=== PATIENT | male | born 1960 | race Caucasian/White ===

== ENCOUNTER 2023-09-05 23:58 | Inpatient (IN) | payer OTHER, SELFPAY ==
[2023-09-05 22:35] VITALS: BMI 30.2
--- NOTE | 2023-09-05 22:39 | ED.GENMED ---
History of Present Illness
General
Chief Complaint: Breathing Problem
Time Seen by Provider: 09/05/23 22:35
Travel History
Have you had any contact with someone who has COVID-19?: No
Do you have any symptoms of coronavirus? Fever > 100 degrees, chills, cough, shortness of breath, sore throat, loss of taste or smell, muscle aches, or headache?: No
History of Present Illness
History of Present Illness:
63-year-old male with history of CHF, coronary artery disease, A-fib on Eliquis, presents to the emergency department for evaluation of shortness of breath. States it feels similar to a recent CHF exacerbation, at that time he was admitted to [facility] in [place]. He is currently on furosemide and spironolactone and states has been compliant with his medications. Denies any leg swelling
Per patient, last known echocardiogram was approximately 1 year ago showing an EF of 17%
Review of Systems
Review of Systems
Allergies reviewed?: Yes
All Other Systems: ROS reviewed and negative except as documented in HPI and ROS
Phy Exam
Physical Exam
Physical Exam:
GEN: Well appearing, NAD, WDWN
Eyes: PERRLA, EOMs intact, no scleral icterus
HENT: NCAT, oral mucosa moist, ++ JVD, no cervical adenopathy.
Lungs: Tachypneic, increased respiratory effort, scant bibasilar wheezes otherwise clear lungs
Cardiac: Tachycardic regular
Neuro: AO x 3
MSK: No gross deformity or ecchymosis. No edema. No digital clubbing
Skin: No rashes, petechiae. Normal color, no pallor or jaundice.
Psych: Calm, cooperative, proper hygiene
Scores
Heart Failure Risk
Heart Failure Risk Score: Yes
History of Stroke or TIA: No
History of intubation for respiratory distress: No
Heart rate on ED arrival >/= 110: Yes
SaO2 <90% on arrival on room air: No
HR >/=110 during 3min walk test (or too ill to perform test): Yes
ECG has acute ischemic changes: Yes
Urea >/=12mmol/L (BUN 33.6mg/dL): No
Serum CO2>/=35mmol/L: No
Troponin I or T elevated to MO Level (0.4mg/dL): No
NT-proBNP >/=5,000ng/L (5,000pg/ml): Yes
HF Risk Score: 5
Admission Status: VERY HIGH RISK 39.8% Consider admission to hospital
Course
Orders/Labs/Results
Orders:
Orders
09/05/23 22:17
Electrocardiogram (*1) Urgent
Reason for Study: Shortness of Breath
EKG- Treatment ONCE
09/05/23 22:32
BNP [NT-proBNP] Urgent
CMP [Comprehensive Metabolic Panel] Urgent
Complete Blood Count/With Diff Urgent
09/05/23 22:38
Troponin I Urgent
Diltiazem HCl [Cardizem] 20 mg IV NOW STA
09/05/23 22:39
CR Chest - 2 Views Urgent
Comment:
Reason For Exam: SOB
09/05/23 22:43
Diltiazem HCl [Cardizem] 25 mg .ROUTE .STK-MED ONE
09/05/23 22:45
Diltiazem 125 mg/125 ml Nss [Cardizem] 125 mg in 125 ml IV PER PROTOCOL
Initial dose in mg/hr, then titrate:: 5
Titrate to keep:: Heart rate 80-100 bpm
Titrate by mg/hr:: 5 mg/hr
Frequency of titrations (minutes):: 15
Maximum dose in mg/hr:: 15
09/05/23 23:18
Diltiazem HCl [Cardizem] 20 mg IV NOW STA
Furosemide [Lasix] 40 mg IV NOW STA
Abnormal Lab Results
09/05/23
22:32
RBC 4.51 L 10^6/uL
(4.70-6.10)
MCHC 32.8 L g/dL
(33.0-37.0)
RDW 14.6 H %
(11.5-14.5)
Absolute Monos (auto) 0.7 H 10^3/uL
(0.1-0.6)
BUN 25 H mg/dl
(9-20)
Glucose 147 H mg/dl
(70-99)
Total Bilirubin 3.2 H mg/dl
(0.2-1.3)
AST 88 H U/L
(17-59)
ALT 95 H U/L
(0-50)
09/05/23 22:32
09/05/23 22:32
Vital Signs
Initial and Last Documented VS:
Initial Vital Signs
Temp Pulse Resp Pulse Ox
98.1 F 74 32 98
09/05/23 22:13 09/05/23 22:13 09/05/23 22:13 09/05/23 22:13
Last Documented Vital Signs
Temp Pulse Resp BP Pulse Ox
98.1 F 151 33 115/103 92
09/05/23 22:13 09/05/23 23:23 09/05/23 22:45 09/05/23 23:23 09/05/23 22:45
MDM/Problems Addressed
MDM/Problems Addressed:
63-year-old male with history of severe HFrEF presents in acute decompensated heart failure. Department due to rapid atrial fibrillation. He was promptly started on diltiazem drip for rate control and IV diuresis was initiated. Chest x-ray
independently interpreted by me shows cardiomegaly without obvious vascular congestion or edema. Do not suspect infectious etiology, he is anticoagulated thus do not suspect pulmonary embolism. Will be admitted to the hospitalist service for
further management
Comment
Comment:
EKG independently interpreted by me shows a rapid atrial flutter with a rate of [address] depressions
*Critical Care Note
Total Time (30-74mins, 75-104mins- exclusive of procedures): 40 minutes
comment:
Critical care time: 40 minutes
Critical care time was exclusive of: Separately billable procedures, treating other patients, and teaching time
Critical care was necessary to treat or prevent imminent or life-threatening deterioration of the following conditions: Rapid atrial fibrillation, acute CHF
Critical care time spent personally by me on the following activities:
[x] Review of old charts
[x] Obtaining history from patient or surrogate
[x] Ordering and review of the laboratory studies
[x] Ordering and review of radiographic studies
[x] Ordering and performing treatments and interventions
[x] Patient patient's response to treatment
[x] Development of treatment plan with patient or surrogate
ED Attending Note
-
Portions of this chart may have been created with voice recognition software.� Occasional wrong word or��sound alike� substitutions may have occurred due to the inherent limitations of voice recognition software.
Discharge Plan
Departure
Patient Disposition: Admit
Date of Disposition: 09/05/23
Time of Disposition: 23:19
Presentation/result/management discussed w/ accepting MD/DO: Hospitalist
Discharge Problem:
Atrial fibrillation with RVR, Acute on chronic HFrEF (heart failure with reduced ejection fraction)
Interventions
Interventions:
*Risk Screen - Suicide Last Done: 09/05/23 22:13
*General Assessment Last Done: 09/05/23 22:36
*Neglect/Abuse Screening Last Done: 09/05/23 22:13
ED- Fall Risk Assessment Last Done: 09/05/23 22:38
*ED COVID-19 Vaccine History Last Done: 09/05/23 22:36
ED- Cardiac Assessment Last Done: 09/05/23 22:38
ED- Pulmonary Assessment Last Done: 09/05/23 22:38
Discharge Date and Time
Print Language: LAO
[2023-09-05 22:40] VITALS: BP 110/89
[2023-09-05 22:40] LABS: % Eosinophils 2.8 % (0-6); % Immature Granulocytes 0.2 % (0-0.5); % Lymphocytes 28.2 % (20.5-51.1); % Neutrophils 60.8 % (42.2-75.2); Absolute Basophils 0.1 10^3/uL (0-0.2); Absolute Eosinophils 0.3 10^3/uL (0-0.7); Absolute Lymphocytes 2.9 10^3/uL (1.2-3.4); Absolute Monocytes 0.7 10^3/uL (0.1-0.6); Absolute Neutrophils 6.2 10^3/uL (1.4-6.5); Hematocrit 42.1 % (39.0-52.0); Hemoglobin 13.8 g/dL (13.0-18.0); Mean Corp Hgb Conc. 32.8 g/dL (33.0-37.0); Mean Corpuscular Hgb 30.6 pg (27.0-31.0); Mean Corpuscular Volume 93.3 fL (80.0-94.0); Mean Platelet Volume 10.4 fL (7.4-10.4); Nucleated Red Blood Cells % 0 % (-); Platelet Count 279 10^3/uL (130-400); Red Blood Cell Count 4.51 10^6/uL (4.70-6.10); Red Cell Dist. Width 14.6 % (11.5-14.5); White Blood Cell Count 10.2 10^3/uL (4.8-10.8)
[2023-09-05] MEDS: CARDIZEM 20 MG IV ×2 (22:45→23:21)
[2023-09-05] MEDS: CARDIZEM 125 IV ×2 (22:46→23:19)
[2023-09-05 22:53] LABS: ALT (SGPT) 95 U/L (0-50); AST (SGOT) 88 U/L (17-59); Alkaline Phosphatase 80 U/L (38-126); Blood Urea Nitrogen 25 mg/dl (9-20); Calcium 9.3 mg/dl (8.4-10.2); Carbon Dioxide 23 mmol/L (22-30); Chloride 101 mmol/L (98-107); Estimated Creatinine Clearance 67 ml/min; Glucose 147 mg/dl (70-99); Potassium 4.2 mmol/L (3.5-5.1); Sodium 136 mmol/L (135-145); Total Bilirubin 3.2 mg/dl (0.2-1.3); Total Protein 7.1 g/dl (6.3-8.2); eGFR > 60.00
[2023-09-05 23:00] VITALS: BP 97/69
[2023-09-05 23:00] LABS: NT-proBNP 12900 pg/ml
[2023-09-05 23:15] VITALS: BP 115/103
[2023-09-05] MEDS: LASIX 40 MG IV (23:23)
--- NOTE | 2023-09-05 23:40 | HPS.HSE ---
Addendum entered and electronically signed by Jean Stockton MD 09/06/23 00:49:
Trop 0.09. ECG is non-ischemic. Several days of SOB and uncontrolled afib. Suspect tachycardia induced demand ischemia in setting of low EF and uncontrolled afib.
- continue ac with apixaban
- trend trop
- cards consult
- rate control and volume decompression as described in rest of plan
Original Note:
Family Physician
-
Family Physician: * NONE
Chief Complaint
-
Shortness of breath
History of Present Illness
This is a 63-year-old with past medical history of CAD, OK in 2019 with subsequent ischemic remained with the EF of 20% status post defibrillator pacemaker, atrial fibrillation, recurrent admissions for CHF exacerbations in the past who presents to
the emergency department with 3 days of worsening dyspnea on exertion, shortness of breath and orthopnea.
Patient reported that he was only discharged from the hospital about a month ago. Was discharged on his current regimen of 40 mg of Lasix daily which he has been compliant with. He does not know if he has had any increase in his weight. However
over the last 4 to 5 days he has had increasing fatigue and dyspnea on exertion. In the last 2 to 3 days he has had cough paroxysms of severe orthopnea. Cough is non-productive. No fevers, chills. No sick contacts. No new meds or exposures.
Patient reports that he does not have lower extremity edema but he has never had increasing lower extremity edema with CHF exacerbations. He denies increase in abdominal girth. He denies any exertional chest pain. He does report chest discomfort
with coughing. Denies feeling dizzy or lightheaded. He is not aware of palpitations. He reports that his never had uncontrolled atrial fibrillation in the past.
On arrival in the emergency department the patient was afebrile, blood pressure was 110/89, heart rate was 149 oxygen saturation was 90% on room air. ECG shows atrial flutter with 2 1 conduction with a rate of 150. Chest x-ray shows cardiomegaly.
Increased vascular markings but no clear evidence of pulmonary edema. Was negative. BNP was markedly elevated. BUN/creatinine were 25 and 1.3 electrolytes were normal with a potassium of 4.2. CBC was unremarkable. He does have increased LFTs.
Medical History
Past Medical History
Past Medical History: Reports Arrhythmia, CHF, HTN and OK
Past Surgical History: Reports None
Social History
Tobacco: Non-smoker
Alcohol: Former
Drug: None
Personal:
Living: With Family
Employment: Retired
Family History
Family History: Not pertinent
Allergies / Home Medications
Allergies reflects when Allergies were last updated in [facility].
Home Medications with original date entered in [employer]
Allergy/Medication List:
No known drug allergies
Apixaban 5mg po bid
Carvedilol 12.5 mg po bid
Furosemide 40 mg o daily
Lisinopril 5mg po daily
spironolactone 25 mg po daily
Potassium chloride 10 meq po daily
Review of Systems
-
History Source: Patient and Family
Constitutional: Reports No Symptoms
EENT: Reports No Symptoms
Respiratory: Reports Cough and Trouble Breathing
Cardiac: Reports Diaphoresis
Abdomen/GI: Reports No Symptoms
: Reports No Symptoms
Musculoskeletal: Reports No Symptoms
Skin: Reports No Symptoms
Neurological: Reports No Symptoms
Endocrine: Reports No Symptoms
Hematologic/Lymphatic: Reports No Symptoms
Psych: Reports Anxiety
Physical Exam
Vital Signs
Vital Signs
Temp Pulse Resp BP Pulse Ox
98.1 F 151 33 115/103 92
09/05/23 22:13 09/05/23 23:23 09/05/23 22:45 09/05/23 23:23 09/05/23 22:45
Physical Exam
General: Appears in Distress
HEENT: NormoCephalic, Anicteric, Moist mucous membranes, Atraumatic and PERRLA
Respiratory: Clear
Cardiac: S1/S2, Irregular Rhythm, Tachycardia and JVD
GI: Soft, Non Tender, Non Distended and Normal Bowel Sounds
Rectal: Deferred by Provider
Genito-urinary: Deferred by me
Musculoskeletal: No Clubbing, No Cyanosis and No Edema
Skin: Warm
Neuro: AO x 3
Hematologic/Lymphatic: No Lymphadenopathy
Psych: Calm
Laboratory Results
-
09/05/23 22:32
09/05/23 22:32
Laboratory Results
Total Bilirubin 3.2 mg/dl (0.2-1.3) H 09/05/23 22:32
AST 88 U/L (17-59) H 09/05/23 22:32
ALT 95 U/L (0-50) H 09/05/23 22:32
Alkaline Phosphatase 80 U/L (38-126) 09/05/23 22:32
Data Reviewed
-
Diagnostic Radiology: Image Personally Visualized and interpreted
Medical Tests (Nuc Med, Echo, EKG etc): Image Personally Visualized and interpreted
Lab Data: Labs Reviewed by me
Old Records: Reviewed
Impression/Plan
-
IMPRESSION:
63 Male h/o OK with subsequent cardiomyopathy, EF 20% s/p AICD-ppm, recurrent admissions for CHF exacerbations, afib on AC presenting to ED with uncontrolled afib/flutter, dyspnea, orthopnea and pnd. Patient with paroxysmal cough that is worse
laying down. Exam notable for JVD elevation but now peripheral edema or crackles. Patient reports never having peripheral edema despite CHF exacerbations. BNP is markedly elevated and he has transaminitis that is likely due to congestive
hepatopathy. No consolidation.
PLAN:
1. CHF Exacerbation - Acute on chronic CHF with depressed EF. Moderate volume overload.
- admit to IMU
- lasix 40mg iv bid for now
- monitor weights and i/os
- will hold lisinopril to allow for titrating rate control
- continue spironolactone.
- echo in am
- cardiology consult
2. Uncontrolled Afib - Afib flutter. Initially presented with flutter 1:2 conduction at 150. Now afib with rates in 110s after diltiazem gtt
- telemetry
- continue dilitazem gtt, titrate for rate < 110, may consider amiodarone or dig if remains uncontrolled
- continue beta blockade as tolerated (carvedilol 12.5 bid)
- continue apixaban
- cardiology consult
3. Anxiety - Caused by orthopnea
- keep HOB > 30 degrees
- tolerated xanax 0.25 prn in the past
4. Transaminitis - Suspect congestive hepatopathy
- diuresis
- trend lfts
- echo, consider RUQ u/s in am
DVT PPX - on apixaban
Full Code.
[2023-09-05 23:54] VITALS: BP 104/66
[2023-09-06] VITALS (70 sets, daily range): BP systolic 58–164; BP diastolic 28–139; BMI 29.3
[2023-09-06] MEDS: XANAX 0.25 MG PO (00:16)
[2023-09-06 00:26] LABS: Troponin I 0.095 ng/ml
--- NOTE | 2023-09-06 03:14 | PTCARENOTE ---
Rec'd pt. into room 2249 from ED AAOx3, A-flutter on the monitor, rate 80's-110's with activity. Cardizem infusing at 10 mg/hr. No complaints of pain. Pt. independent with ambulation, gait steady. Some VAIL assessed, crackles present in bilateral
bases, RA pulse ox 96%. Dry cough also present when pt. awake. Pt. oriented to room & plan of care, admission completed. Pt. very tired, currently sleeping.
[2023-09-06 05:37] LABS: Blood Urea Nitrogen 23 mg/dl (9-20); Calcium 8.8 mg/dl (8.4-10.2); Carbon Dioxide 21 mmol/L (22-30); Chloride 105 mmol/L (98-107); Estimated Creatinine Clearance 78 ml/min; Glucose 112 mg/dl (70-99); Magnesium 1.9 mg/dl (1.6-2.3); Potassium 3.7 mmol/L (3.5-5.1); Sodium 135 mmol/L (135-145); eGFR > 60.00
[2023-09-06 05:44] LABS: Troponin I 0.089 ng/ml
[2023-09-06 05:56] LABS: TSH Reflex To Free T4 2.15 uIU/ml (0.47-4.68)
[2023-09-06] MEDS: LASIX 40 MG IV (08:05)
[2023-09-06] MEDS: ALDACTONE 25 MG PO (08:05)
[2023-09-06] MEDS: ELIQUIS 5 MG PO ×2 (08:05→21:00)
[2023-09-06] MEDS: COREG 12.5 MG PO (08:05)
[2023-09-06] MEDS: FLUSH (NSS) 2 FLUSH IV (08:07)
--- NOTE | 2023-09-06 08:55 | CON.CAR ---
Addendum entered and electronically signed by Avi Levi MD 09/06/23 10:11:
63 yo male with PMH of WI in 2020 (patient does not think there was any intervention), ICM EF ~20%, s/p ICD, chronic HFrEF, paroxysmal A fib on eliquis is admitted with SOB. There is no chest pain. Exam with irregular rhythm, II/ systolic murmur
at apex, minimal edema, +JVD.
Acute on chronic HFrEF
-echo today
-continue IV lasix
-continue aldactone
-add farxiga
New atrial flutter
-cont eliquis: he does report missed doses
-stop diltiazem, and increase coreg to 25mg bid
-once euvolemic, we can schedule for AIDA/DCCV
Original Note:
Consultation
Consultation Request
Date/Time Consultation Requested: 09/06/23 02:00
Date/Time Consultation Performed: 09/06/23 08:55
Requesting Provider: Dr. Stockton
Performing Provider: LYN Lugo for Dr. Levi
Reason for Consultation: Abnormal troponin
Medical History
-
Chief Complaint: Shortness of breath
History of Present Illness:
Juan Daniel Raman is a 63-year-old male (known to Dr. Conrado Escalante at [facility]), with coronary artery disease, ischemic cardiomyopathy, and paroxysmal atrial fibrillation (on apixaban), who presented to the emergency department
last evening with a chief complaint of shortness of breath. He endorses shortness of breath that started approximately 2 days prior to arrival. He has associated orthopnea and PND. He reported palpitations. He was found to be in atrial flutter,
2:1 with a heart rate of nearly 150. He was started on a diltiazem drip. His past medical history includes an WI in 2020 with subsequent ischemic cardiomyopathy. He reports his lowest ejection fraction was approximately 17%. His EF did not
rebound and he had a Medtronic ICD placed. He has had issues with recurrent admissions for heart failure exacerbations. He reports this is a typical scenario for his heart failure exacerbation, severe shortness of breath. He reports he has
forgotten his medications at least 4 days in the past month. This includes both furosemide and apixaban. He is visiting from [place] and he reports he did not bring all of his medication with him.
Past Medical History
Past Medical History: Arrhythmias (Paroxysmal atrial fibrillation [on apixaban]), CAD, CHF, HTN and WI
Social History
Tobacco: Non-Smoker
Alcohol: None
Drug: None
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
Family History
Family History: Reviewed & Not Pertinent
Allergies / Home Medications
Allergy/AdvReac Type Severity Reaction Status Date / Time
No Known Allergies Allergy Verified 09/05/23 22:41
�Medication �Instructions �Recorded �Confirmed �Type
apixaban 5 mg tablet (Eliquis) 5 mg PO BID 09/06/23 09/06/23 History
carvedilol 12.5 mg tablet 12.5 mg PO BID 09/06/23 09/06/23 History
furosemide 40 mg tablet 40 mg PO DAILY 09/06/23 09/06/23 History
lisinopril 5 mg tablet 5 mg PO DAILY 09/06/23 09/06/23 History
potassium chloride 10 mEq 10 meq PO DAILY 09/06/23 09/06/23 History
tablet,extended release
spironolactone 25 mg tablet 25 mg PO DAILY 09/06/23 09/06/23 History
Review of Systems
-
History Source: Patient
All other systems: Negative unless noted
Respiratory: Trouble Breathing
Cardiac: No Symptoms
Abdomen/GI: No Symptoms
Physical Exam
Vital Signs
Temp Pulse Resp BP Pulse Ox
97.6 F 93 24 99/74 96
09/06/23 08:04 09/06/23 08:05 09/06/23 08:04 09/06/23 08:05 09/06/23 08:04
Lab Results
09/05/23 22:32
09/06/23 04:38
Troponin I 0.089 ng/ml H* 09/06/23 04:38
[id number] Pept 30914 pg/ml 09/05/23 22:32
Physical Exam
General: Well Developed, Well Nourished, No Apparent Distress and Comfortable
HEENT: Normocephalic, Anicteric and Moist Mucous Membranes
Respiratory: Clear and Non Labored Respirations
Cardiac: S1/S2 and Irregular Rhythm; Negative Peripheral Edema
Breast: Deferred by me
GI: Soft, Non Tender, Non Distended and Normal Bowel Sounds
Rectal: Deferred by Provider
Genito-urinary: No Costovertebral Tender
Musculoskeletal: No Clubbing, No Cyanosis and No Edema
Skin: Warm and Dry
Neuro: AO x 3
Hematologic/Lymphatic: No Lymphadenopathy
Psych: Calm
Impression / Plan
-
Shortness of breath, multifactorial, in the setting of rapid atrial flutter and acute on chronic HF
-Plan as below
Acute hypoxic respiratory insufficiency, in the setting of acute heart failure - wean O2 as tolerated
ICM, HFrEF, acute on chronic
-Reports last known EF ~20%, update TTE
-He reports missed doses of furosemide
-Diuresis with furosemide 40mg IV BID
-proBNP 12,900, baseline unknown
-GDMT as tolerated, it appears to be limited by his BP
-MANJU/ARB: Lisinopril 5mg, on hold with diuresis
-Valsartan�sacubitril: His BP will likely not support this
-SGLT2: Case Management to arellano, start Farxiga 10mg
-MRA: Spironolactone 25mg
-Beta radu: Carvedilol 12.5mg BID
-ICD: Implanted (Medtronic)
-Trend daily weight, I/Os, and BMP with diuresis
-Medication non-adherence makes this challenging
Atrial flutter, 2:1
Paroxysmal atrial fibrillation
-Rate controlled on diltiazem, which is less than ideal given his ICM
-Increase carvedilol to 25mg BID and stop diltiazem after TTE
-Oral anticoagulation: Apixaban 5mg BID, he endorses missed doses
-[id number]:score 3 (Heart failure, HTN, Vascular disease)
-Will likely restore rhythm this hospitalization, will need AIDA guided DCCV
Abnormal troponin, likely non ischemic myocardial injury in the setting of tachyarrhythmia
-Peak on arrival, 0.095
-Chest pain free
CAD, on apixaban, he is not on a statin, fasting lipid profile in am, will start statin based on LFTS
Medtronic ICD
Transaminitis, likely in the setting of congestion
Data Reviewed
-
EKG: Report Reviewed by me (Atrial flutter, 2:1, LAFB, LVH, rate 147; Atrial flutter, LVH, rate 84)
Radiology: Report Reviewed by me (CXR: Mild pulmonary vascular congestion. Mild cardiomegaly.)
Labs: Labs Reviewed by me
[2023-09-06] MEDS: XANAX 0.5 MG PO (10:28)
--- NOTE | 2023-09-06 10:29 | PTCARENOTE ---
patient rolling around in bed, breathing heavily, cussing stating that he is having a 'panic attack', Ativan po given as ordered.
--- NOTE | 2023-09-06 10:39 | W.PN.HOSP.TC ---
Today's Communication/Plan
-
Consider IV Lasix.
Echocardiogram today
Consider switching IV Cardizem with low EF
Await cardiology input
Assessment / Plan
Assessment / Plan
IMPRESSION:
63 Male h/o RI with subsequent cardiomyopathy, EF 20% s/p AICD-ppm, recurrent admissions for CHF exacerbations, afib on AC presenting to ED with uncontrolled afib/flutter, dyspnea, orthopnea and pnd. Patient with paroxysmal cough that is worse
laying down. Exam notable for JVD elevation but now peripheral edema or crackles. Patient reports never having peripheral edema despite CHF exacerbations. BNP is markedly elevated and he has transaminitis that is likely due to congestive
hepatopathy. No consolidation.
PLAN:
1. Acute CHF Exacerbation - Acute on chronic CHF with depressed EF.
- cw IV lasix 40mg iv bid for now
- monitor weights and i/os
- will hold lisinopril to allow for titrating rate control
- continue spironolactone.
- echo
- cardiology consult
2. Uncontrolled Afib - Afib flutter. Initially presented with flutter 1:2 conduction at 150. Now afib with rates in 110s after diltiazem gtt
- telemetry
- on dilitazem gtt, titrate for rate - with low EF i would favor discontinuing it for another agent/s
- continue beta blockade as tolerated (carvedilol 12.5 bid)
- continue apixaban
- cardiology consult
3. Anxiety
- start on xanax prn
4. Transaminitis - Suspect congestive hepatopathy
- diuresis
- trend lfts
- echo
DVT PPX - on apixaban
Full Code.
Anticipated Discharge: > 48 hours
Subjective/Interval History
-
Date of Service: September 06, 2023
This morning complains of feeling panicky. He said for the last 3 days he has been feeling panicky. He said that he got relief with Xanax last night.
He is lying back in his bed feeling panicky but no increased respiratory rate, oxygenating well on 2 L, heart rate in 60s, blood pressure stable. No sweating noted. No tremors noted.
Denies any chest pain.
Objective Data
-
Labs:
Laboratory Results
09/05/23 09/06/23
22:32 04:38
WBC 10.2
Hgb 13.8
Hct 42.1
Plt Count 279
Sodium 136 135
Potassium 4.2 3.7
Chloride 101 105
Carbon Dioxide 23 21 L
BUN 25 H 23 H
Creatinine 1.3 1.0
Glucose 147 H 112 H
Calcium 9.3 8.8
Total Bilirubin 3.2 H
AST 88 H
ALT 95 H
Alkaline Phosphatase 80
Vital Signs:
Vital Signs
Temp Pulse Resp BP Pulse Ox
97.6 F 99 24 99/74 96
09/06/23 08:04 09/06/23 09:00 09/06/23 08:04 09/06/23 08:05 09/06/23 08:04
I&O
09/05/23 09/06/23 09/07/23
06:59 06:59 06:59
Intake Total 240 / 240
Output Total 1025 / 1025
Balance -785 / -785
Review of Systems
-
Constitutional: Denies Fever
EENT: Denies Sore Throat
Respiratory: Reports Trouble Breathing; Denies Cough
Cardiac: Denies Chest Pain
Abdomen/GI: Denies Nausea or Vomiting
Neuro: Denies Dizzy
Psych: Reports Anxious
Physical Exam
-
General: No Apparent Distress
HEENT: Moist Mucous Membranes
Respiratory: Crackles (few left basal crackles heard ) and Non Labored Respirations; Negative Wheezes or Accessory Resp Muscle Use
Cardiac: S1/S2 and Irregular Rhythm; Negative Tachycardic
GI: Soft, Nontender, Nondistended and Normal Bowel Sounds
Neuro: AO x 3 and No Motor Deficits; Negative Tremors
Psych: Anxious; Negative Confused or Agitated
Data Reviewed
-
Labs: Labs Reviewed by me
[2023-09-06] MEDS: CARDIZEM 125 IV (11:25)
--- NOTE | 2023-09-06 11:53 | W.PN.UPDATE ---
Addendum entered and electronically signed by Schuyler Hernandez MD 09/06/23 12:44:
I saw and examined the patient.
The HATCHERY MANAGER's note was reviewed and I agree with the note.
Patient assessed . Sob and hypotension. Patient placed on facemask give IV levophed and IV cardziem stopped. Patient still with SOB but feeling a little better and pulse ox 100% on facemask.Patient trasnferred to ICU. Patient with known
cardiomyopathy. Echo with EF10-15% also with RV hypokinesis. Patient is critically ill. Challenging management issue in patient with severely reduced LVF. Hypotension may be multifactorial related to combination of cardiomyopathy and meds. Also
consider other potential factors ( PE) and infection. BP as well as afib
- continue anticoagulation initiated by primary team. Does not appear he would be able to get CT at this time
- continue levo . will wean as tolerated and will asses ue of additonal inotrope support
- keep off cardizme
Original Note:
Update Note
Progress Note Update
Called by nurse to see patient.
He is short of breath (worse), hypoxic, and hypotensive. Levophed started.
HR 50s off diltiazem gtt.
He appears very anxious on exam. 'I can't take a deep breath. I can't breathe.'
Shortness of breath not worse with lying flat for EKG.
ABG ordered.
Limited TTE without effusion & LVEF ~15-20% according to my views.
Consider Ddx of PE despite low Wells Criteria.
Attending notified via TT. Dr Hernandez updated.
[2023-09-06 11:59] LABS: Glucose - Point of Care 211 mg/dl (70-99)
[2023-09-06 12:16] LABS: % Basophils 0.6 % (0-2); % Eosinophils 2.4 % (0-6); % Immature Granulocytes 0.5 % (0-0.5); % Lymphocytes 18.2 % (20.5-51.1); % Neutrophils 72.3 % (42.2-75.2); Absolute Basophils 0.1 10^3/uL (0-0.2); Absolute Eosinophils 0.2 10^3/uL (0-0.7); Absolute Immature Granulocytes 0.1 10^3/uL (0-0.05); Absolute Lymphocytes 1.8 10^3/uL (1.2-3.4); Absolute Monocytes 0.6 10^3/uL (0.1-0.6); Hemoglobin 13.3 g/dL (13.0-18.0); Mean Corp Hgb Conc. 34.1 g/dL (33.0-37.0); Mean Corpuscular Hgb 30.7 pg (27.0-31.0); Mean Corpuscular Volume 90.1 fL (80.0-94.0); Mean Platelet Volume 10.6 fL (7.4-10.4); Nucleated Red Blood Cells % 0 % (-); Platelet Count 254 10^3/uL (130-400); Red Blood Cell Count 4.33 10^6/uL (4.70-6.10); Red Cell Dist. Width 14.6 % (11.5-14.5); White Blood Cell Count 9.6 10^3/uL (4.8-10.8)
[2023-09-06 12:20] LABS: B.E. -4.5 mmol/L; PCO2 30 mmHg (35-48); PO2 162 mmHg (83-108); pH 7.41 (7.35-7.45)
--- NOTE | 2023-09-06 12:21 | W.PN.UPDATE ---
Update Note
Progress Note Update
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
Rapid response called at macrocephalic bradycardia hypotension and patient complaining of shortness of breath.
Patient was en route to ICU when i arrived.
Patient complains of shortness of breath.
Bluish discoloration of face noted.
Diaphoresis noted.
Currently on IV Levophed. Cardizem drip discontinued.
Currently settling ICU. With the elevation of the head: The face is much better. He is feeling more comfortable.
Currently heart rate in 60s. MAP 76 saturating 97% on 10 L of oxygen. He denies any chest pain.
No acute respiratory distress evident.
Will obtain a chest x-ray.
Obtain repeat labs including troponin.
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
No history of prior PE. He was taking Eliquis for A-fib and he got his dose today.
My concern is hypotension and bradycardia brought on by Cardizem drip with already pre-existing decreased cardiac output.
Consider Inotropes
Wean O2 ; if not able to and cxr is clear consider PE eval.
Consult pulmonary
DW PACKING ATTENDANT team and cardiology
Total time of critical care 35 min
[2023-09-06] MEDS: DUONEB 3 ML INH (12:23)
[2023-09-06 12:28] LABS: Lactic Acid 3.8 mmol/L (0.7-2.0)
[2023-09-06 12:30] LABS: ALT (SGPT) 79 U/L (0-50); AST (SGOT) 62 U/L (17-59); Albumin 3.5 g/dl (3.5-5.0); Alkaline Phosphatase 74 U/L (38-126); Blood Urea Nitrogen 24 mg/dl (9-20); Calcium 9.1 mg/dl (8.4-10.2); Carbon Dioxide 18 mmol/L (22-30); Chloride 102 mmol/L (98-107); Estimated Creatinine Clearance 56 ml/min; Glucose 195 mg/dl (70-99); Potassium 4.4 mmol/L (3.5-5.1); Sodium 133 mmol/L (135-145); Total Protein 6.3 g/dl (6.3-8.2); eGFR 56.48
--- NOTE | 2023-09-06 12:30 | PTCARENOTE ---
This RN in to see pt bec HR noted to be in 60's on telemetry monitoring. Pt on a Cardizem drip at 10mLs/hr. Cardizem drip stopped & BP checked. Pt's BP 80/66, recheck 85/73. Pt reported feeling like he was 'having a panic attack' earlier in the
shift. Cardiology & Dr Serrano in to see pt earlier & IV lasix given as ordered by MD & PO Xanax administered as ordered for anxiety. Pt stated to this RN, 'it's happening again' & described his SOB as 'a panic attack'. Pt w/no c/o CP, but very
orthopneic & tachypneic at rest. O2 via NC increased to 6L. Pt's O2 sat 99-100% on 6L. Cardiology PA notified & in to see pt. Initially NSS IVF started on pt, but stopped when PA arrived. Pt's BP even lower at 58/28, immediate recheck 86/71. Rapid
response called. See Rapid response sheet for further information. Pt transferred to ICU.
[2023-09-06 12:37] LABS: INR 1.66; PT 19.4 Sec (11.4-14.6)
[2023-09-06 12:38] LABS: APTT 35.7 Sec (23.4-35.0)
[2023-09-06 12:40] LABS: D-Dimer 1.45 ug/mlFEU (0.00-0.50)
[2023-09-06 12:42] LABS: Troponin I 0.078 ng/ml
--- NOTE | 2023-09-06 14:13 | PTCARENOTE ---
Rapid response called for patient in IVU level of care. Pt admitted for CHF exacerbation and uncontrolled A Fib; had been on Cardizem gtt. Cardizem gtt now off. Pt hypotensive with lowest documented BP 58/28. Norepinephrine gtt titrated to 10mcg/min
to maintain goal of SBP > 90. New goal ordered for MAP > 65; pt remains @ 10 mcg/hr. A Fib/A Flutter on monitoring tech. HR 50s - 60s. Trace LE edema. Pt stating shortness of breath. RR to 40s. SaO2 98% on 6L NC. Crackles auscultated at bases. NC
increased to 10L for comfort. Labs drawn and sent. Pt transferred to ICU.
--- NOTE | 2023-09-06 14:52 | CON.INTV ---
Consultation
Consultation Request
Date/Time Consultation Requested: 09-06-23
Date/Time Consultation Performed: 09-06-23
Requesting Provider: Hospitalist flo
Performing Provider: Dr Mckeon
Reason for Consultation: dyspnea
Medical History
-
Chief Complaint: dyspnea
History of Present Illness:
Mr Juan Daniel Raman is a 63/M adm 09-04 with 3-5 d h/o worsening dyspnea, orthopnea and nonproductive cough.
Known h/o CHF with EF 20% and recurrent adm for AECHF. At ER presented uncontrolled AFib, started on diltiazem gtt, IV furosemide.
NURSE OB called 09-05 due to hypotension, bradycardia and dyspnea, diltiazem gtt discontinued, started on NE and transferred to ICU
Seen at ICU, obtunded, borderline bradycardia, continue on NE gtt
Past Medical History
Past Medical History: CAD, CHF and HTN
Social History
Tobacco: Non-smoker
Alcohol: Former
Drug: None
Personal:
Living: With Family
Family History
Family History: Reviewed & Not Pertinent
Allergies / Home Medications
Allergies
Allergy/AdvReac Type Severity Reaction Status Date / Time
No Known Allergies Allergy Verified 09/05/23 22:41
Home Medications
�Medication �Instructions �Recorded �Confirmed �Last Taken �Type
apixaban 5 mg tablet (Eliquis) 5 mg PO BID Blood Clot 09/06/23 09/06/23 Unknown History
Prevention/Tx
carvedilol 12.5 mg tablet 12.5 mg PO BID Heart Failure 09/06/23 09/06/23 Unknown History
furosemide 40 mg tablet 40 mg PO DAILY Fluid 09/06/23 09/06/23 Unknown History
Retention/Swelling
lisinopril 5 mg tablet 5 mg PO DAILY Blood Pressure 09/06/23 09/06/23 Unknown History
potassium chloride 10 mEq 10 meq PO DAILY Electrolyte 09/06/23 09/06/23 Unknown History
tablet,extended release Repletion
spironolactone 25 mg tablet 25 mg PO DAILY Heart 09/06/23 09/06/23 Unknown History
Disease/Condition
Review of Systems
-
Unable to Obtain full review of systems at this time due to: Acuity
Vitals / Labs / Diagnostic Testing
Vital Signs
Temp Pulse Resp BP Pulse Ox
97.6 F 72 27 106/87 93
09/06/23 08:04 09/06/23 14:30 09/06/23 14:30 09/06/23 14:30 09/06/23 14:30
Lab Data
09/06/23 Unknown
09/06/23 Unknown
Laboratory Results
09/06/23 09/06/23
12:03 Unknown
PT 19.4 H
INR 1.66
APTT 35.7 H
pH 7.41
pCO2 30 L
pO2 162 H
HCO3 19.0 L
O2 Delivery Level
Diagnostic Testing:
Physical Exam
-
HEENT: Normocephalic and Moist Mucous Membranes
Cardiovascular: Regular Rhythm, Peripheral Edema (n) and JVD
Respiratory: Wheeze (n), Rales and Accessory Resp Muscle Use (mild)
GI: Soft, Non Distended and Non Tender
Neurology: Other (lethargic)
Skin: Warm
General: Respiratory Distress (mild)
Assessment
-
Assessment:
Mr Juan Daniel Raman is a 63/M adm 09-04 with 3-5 d h/o worsening dyspnea, orthopnea and nonproductive cough. Known h/o CHF with EF 20% and recurrent adm for AECHF. At ER presented uncontrolled AFib, started on diltiazem gtt, IV furosemide. NURSE OB called
09-05 due to hypotension, bradycardia and dyspnea, diltiazem gtt discontinued, started on NE and transferred to ICU
Impression:
Severe bradycardia
Suspected related to CCB gtt and oral BB
Hypotension, due to severe bradycardia
AECHF
Elevated troponins
Elevated BNP
Elevated D-dimer
Mild hyponatremia
Compensated resp alkalosis
Elevated Cr
Mild transaminitis
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
CHF: ICM
S/p AICD
HTN
PAFib on apixaban
Plan:
Transferred to ICU after NURSE OB evaluation at IMU
Severe bradycardia and hypotension
IV diltiazem gtt discontinue
Started NE, keep MAP=>60-65
Keep asp precs
Follow MS
O2 protocol, keep POx >=92%
Follow inpatient TTE results, reportedly EF at 10-15% as c/w baseline 20% (no information on RV size and function at the moment)
Noted elevated D-dimer, certainly at risk for VTE, though already on apixaban and clinical presentation compatible with AECHF compounded by severe bradycardia
Pending chest CTA
Added BEE doppler
Cards following
Certainly challenging management of A/C CHF given ongoing hypotension and bradycardia
Continue IV diuretic, follow response
Prognosis guarded
Critical care time: 35 min
D/w Deb Hernandez and Zach
[2023-09-06] MEDS: LASIX IV (17:05)
[2023-09-06] MEDS: PRIMACOR 20 MG 100 IV (17:30)
[2023-09-06] MEDS: LEVOPHED 250 IV (18:23)
--- NOTE | 2023-09-06 18:32 | PTCARENOTE ---
Pt reassessed. Intermittently drowsy but rouses with verbal stimuli and conversive. Continues to deny chest pain. Remains in A Fib/A Flutter on property assessment monitor. HR had increased to 60s - 70s. Milrinone gtt infusing @ 0.125 mcg/kg/min per order.
Beginning to taper Levophed gtt; currently infusing @ 6 mcg/min. SaO2 94% on 2L NC.
--- NOTE | 2023-09-06 20:33 | PTCARENOTE ---
Pt reassessed. HR now observed in 80s. Denying chest pain. Remains in Atrial Fibrillation on gambling monitor. Ordered to hold 20:00 dose of Coreg 12.5mg PO. Weaning Levophed gtt; infusing @ 4 mcg/min. SaO2 96% on 2L. Pt ate 100% of dinner.
[2023-09-06] MEDS: COREG PO (21:05)
[2023-09-07] VITALS (44 sets, daily range): BP systolic 80–143; BP diastolic 62–120; BMI 29.7
--- NOTE | 2023-09-07 00:48 | PTCARENOTE ---
Pts physical assessment preformed at this time,pt is oriented,denies pain,repositions with ease.VS stable,afebrile.AFIB surveillance monitor,pt maintained on Levophed and Milrinone,MAP levels kept >65 as per order.No resp distress,O2 sats 97% on
2lnc.Sleeping after assessment.
[2023-09-07 05:38] LABS: ALT (SGPT) 114 U/L (0-50); AST (SGOT) 77 U/L (17-59); Albumin 3.4 g/dl (3.5-5.0); Alkaline Phosphatase 80 U/L (38-126); Blood Urea Nitrogen 29 mg/dl (9-20); Calcium 9.5 mg/dl (8.4-10.2); Carbon Dioxide 22 mmol/L (22-30); Chloride 100 mmol/L (98-107); Direct Bilirubin 0.4 mg/dl (0.0-0.4); Estimated Creatinine Clearance 65 ml/min; Glucose 120 mg/dl (70-99); HDL Cholesterol 38 mg/dl; LDL Cholesterol, Calculated 81 mg/dl; Potassium 3.9 mmol/L (3.5-5.1); Sodium 132 mmol/L (135-145); Total Cholesterol 139 mg/dl (50-199); Total Protein 6.4 g/dl (6.3-8.2); Triglyceride 103 mg/dl (10-149); Very Low Density Lipoprotein 20 mg/dl (0-30); eGFR > 60.00
--- NOTE | 2023-09-07 07:52 | W.PN.INTV ---
Today's Communication / Plan
Recommendations
O2 protocol
Milrinone
Diuretic
GDMT
Assessment
-
Assessment:
Mr Juan Daniel Raman is a 63/M adm 09-04 with 3-5 d h/o worsening dyspnea, orthopnea and nonproductive cough. Known h/o CHF with EF 20% and recurrent adm for AECHF. At ER presented uncontrolled AFib, started on diltiazem gtt, IV furosemide. HYDRAULIC TESTER called
09-05 due to hypotension, bradycardia and dyspnea, diltiazem gtt discontinued, started on NE and transferred to ICU
Impression:
Severe bradycardia
Suspected related to CCB gtt and oral BB
Hypotension, due to severe bradycardia
AECHF
Elevated troponins
Elevated BNP
Elevated D-dimer
Mild hyponatremia
Compensated resp alkalosis
Elevated Cr
Mild transaminitis
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
CHF: ICM
S/p AICD
HTN
PAFib on apixaban
Plan:
Transferred to ICU after HYDRAULIC TESTER evaluation at IMU 09-05
Severe bradycardia and hypotension
IV diltiazem gtt discontinued 09-05
Started NE, milrinone
NE off since 3 am today
Continue milrinone
Keep asp precs
MS has improved
O2 protocol, keep POx >=92%
Inpatient limited TTE: LVEF 15-20%, RV hypokinetic, cannot exclude
Noted elevated D-dimer, certainly at risk for VTE, though already on apixaban and clinical presentation compatible with AECHF compounded by severe bradycardia
Chest CTA and BEE doppler negative
Cards following closely
Continue IV diuretic, follow response
Continue BB, dapagliflozin, spironolactone
Can transfer to IVU, will sign off then
Critical care time: 35 min
Subjective Dataa
Subjective Data
Date of Service:
Date of Service: September 07, 2023
Chief Complaint: Manager Union Follow Up
Subjective:
No major events reported overnight
This morning, awake, reports significant clinical improvement
Review of Systems
General: Fever (n), Sweats (n), Chills (n) and Satisfactory Appetite
HEENT: Epistaxis (n) and Dysphagia
Cardiopulmonary: Dyspnea, Cough, Chest Pain and Hemoptysis (n)
GI: Abdominal Pain, Nausea (n) and Vomiting
Neuro: Weakness
Objective Data
Data Reviewed
Vital Signs / I&O / Oxygen:
Vital Signs
Temp Pulse Resp BP Pulse Ox
98.1 F 90 26 125/95 96
09/07/23 05:57 09/07/23 05:45 09/07/23 05:45 09/07/23 05:45 09/07/23 05:45
Intake and Output
09/06/23 09/07/23 09/08/23
06:59 06:59 06:59
Intake Total 240 / 240 1613.0 / 1613.0
Output Total 1025 / 1025 1400 / 1400
Balance -785 / -785 213.0 / 213.0
SaO2 96
Nasal Cannula flow liters per 2
minute
Physical Exam
General: Comfortable
HEENT: Normocephalic and Moist Mucous Membranes
Cardiovascular: Regular Rhythm and Peripheral Edema (n)
Respiratory: Wheeze, Crackles, Non-Labored Respirations (n), Accessory Resp Muscle Use (n) and Stridor (n)
GI: Soft, Non Distended and Non Tender
Neurology: Awake, Oriented and No Motor Deficits
Skin: Warm
Labs/Micro/Reports
Lab Data
09/06/23 Unknown
09/07/23 04:47
Laboratory Results
09/06/23 09/06/23
12:03 Unknown
PT 19.4 H
INR 1.66
APTT 35.7 H
pH 7.41
pCO2 30 L
pO2 162 H
HCO3 19.0 L
O2 Delivery Level
--- NOTE | 2023-09-07 08:37 | W.PN.HOSP.TC ---
Today's Communication/Plan
-
Continue with milrinone
Continue Lasix
Assessment / Plan
Assessment / Plan
IMPRESSION:
63 Male h/o OR with subsequent cardiomyopathy, EF 20% s/p AICD-ppm, recurrent admissions for CHF exacerbations, afib on AC presenting to ED with uncontrolled afib/flutter, dyspnea, orthopnea and pnd. Patient with paroxysmal cough that is worse
laying down. Exam notable for JVD elevation but now peripheral edema or crackles. Patient reports never having peripheral edema despite CHF exacerbations. BNP is markedly elevated and he has transaminitis that is likely due to congestive
hepatopathy. No consolidation.
PLAN paroxysmal atrial fibrillation
1. Acute CHF Exacerbation - Acute on chronic CHF with depressed EF.
-Echo/ showed severely reduced LV function with EF of 15 to 20% and hypokinetic right ventricle.
- cw IV lasix 40mg iv bid
-Yesterday patient had more shortness of breath with hypotension while on Cardizem probably secondary to further depressed cardiac output. Ever since off of Cardizem and now on milrinone feeling better. Chest CT shows acute pulm edema. No
evidence of PE.
- will hold lisinopril to allow for titrating rate control
- continue spironolactone.
- cardiology following
2. New atrial flutter
History of paroxysmal atrial fibrillation
-Cardizem discontinued due to hypotension and more shortness of breath
- continue beta blockade as tolerated (carvedilol 12.5 bid)
- continue apixaban
- cardiology following.
3. Anxiety
-Continue with xanax prn
4. Transaminitis - Suspect congestive hepatopathy
Hyperbilirubinemia which is in direct-suspect concurrent Gilbert's
- diuresis
- trend lfts
- echo
DVT PPX - on apixaban
Full Code.
Transfer to IVU if ok from Cards
Anticipated Discharge: > 48 hours
Subjective/Interval History
-
Date of Service: September 07, 2023
Feeling improved compared to yesterday but still generally weak and fatigued.. Breathing improved. No chest pain.
Objective Data
-
Labs:
Laboratory Results
09/07/23
04:47
Sodium 132 L
Potassium 3.9
Chloride 100
Carbon Dioxide 22
BUN 29 H
Creatinine 1.2
Glucose 120 H
Calcium 9.5
Total Bilirubin 2.0 H D
AST 77 H
ALT 114 H
Alkaline Phosphatase 80
Vital Signs:
Vital Signs
Temp Pulse Resp BP Pulse Ox
97.8 F 90 26 125/95 96
09/07/23 07:55 09/07/23 05:45 09/07/23 05:45 09/07/23 05:45 09/07/23 05:45
I&O
09/06/23 09/07/23 09/08/23
06:59 06:59 06:59
Intake Total 240 / 240 1613.0 / 1613.0
Output Total 1025 / 1025 1400 / 1400
Balance -785 / -785 213.0 / 213.0
Review of Systems
-
Constitutional: Denies Fever
EENT: Denies Sore Throat
Respiratory: Denies Cough
Abdomen/GI: Denies Abdominal Pain, Nausea or Vomiting
Neuro: Denies Dizzy
Physical Exam
-
General: No Apparent Distress
HEENT: Moist Mucous Membranes
Respiratory: Crackles (bibasal more so in left base); Negative Wheezes
Cardiac: S1/S2, Irregular Rhythm and Tachycardic
GI: Soft, Nontender, Nondistended and Normal Bowel Sounds
Neuro: AO x 3
Data Reviewed
-
CT Scan: Report Reviewed by me (ct chest)
Labs: Labs Reviewed by me
[2023-09-07] MEDS: COREG 12.5 MG PO ×2 (09:01→19:08)
[2023-09-07] MEDS: ELIQUIS 5 MG PO ×2 (09:02→19:08)
[2023-09-07] MEDS: ALDACTONE 25 MG PO (09:02)
[2023-09-07] MEDS: LASIX 40 MG IV ×2 (09:02→16:13)
[2023-09-07] MEDS: FARXIGA 10 MG PO (09:02)
--- NOTE | 2023-09-07 09:30 | W.PN.CD ---
Addendum entered and electronically signed by Schuyler Hernandez MD 09/07/23 15:35:
ICD is medtronic
Addendum entered and electronically signed by Schuyler Hernandez MD 09/07/23 09:39:
correction patient received Coreg this morning. Monitor HR and BP response back on Coreg now that it is restarted rather than change to metoprolol
Original Note:
Today's Communication / Plan
-
condition improving . feels better. Not as SOB as yesterday
Levophed weaned down to 2mcg. Try to wean off
Continue midodrine today
monitor afib rates. If BP continues ot improve , then can add low dose metoprolol for rate control
Impression / Plan
-
Shortness of breath, multifactorial, in the setting of rapid atrial flutter and acute on chronic HF
-Plan as below
Acute hypoxic respiratory insufficiency, in the setting of acute heart failure - wean O2 as tolerated
ICM, HFrEF, acute on chronic
-Reports last known EF ~20%,echo this admit with EF 10-20%
-He reports missed doses of furosemide
-GDMT - meds held due to HTN
-ICD: Implanted (Medtronic)
-Trend daily weight, I/Os, and BMP with diuresis
Hypotension- developed 09/07/23. May have been combination of meds ( IV cadizem ) and cardiogenic shock ( severe CM, afib and meds ). CT negative for PE
- cotninue milrinone
- wean levophed as tolerated
Atrial flutter, 2:1
Paroxysmal atrial fibrillation
-Oral anticoagulation: Apixaban 5mg BID, ( missed doses prior to admit)
-[id number]:score 3 (Heart failure, HTN, Vascular disease)
-Will consider restoring rhythm this hospitalization, will need AIDA guided DCCV
- resume low dose BB
Abnormal troponin, likely non ischemic myocardial injury in the setting of tachyarrhythmia
-Peak on arrival, 0.095
-Chest pain free
CAD, on apixaban, he is not on a statin, fasting lipid profile in am, will start statin based on LFTS
Medtronic ICD
Transaminitis, likely in the setting of congestion
Physical Exam
Vital Signs/Labs
Vital Signs
Temp Pulse Resp BP Pulse Ox
97.8 F 109 26 114/89 96
09/07/23 07:55 09/07/23 09:02 09/07/23 05:45 09/07/23 09:02 09/07/23 05:45
09/06/23 09/07/23 09/08/23
06:59 06:59 06:59
Actual Weight 92.6 kg 94 kg
09/06/23 Unknown
09/07/23 04:47
PT 19.4 Sec (11.4-14.6) H 09/06/23 Unknown
INR 1.66 09/06/23 Unknown
APTT 35.7 Sec (23.4-35.0) H 09/06/23 Unknown
Magnesium 1.9 mg/dl (1.6-2.3) 09/06/23 04:38
Triglycerides 103 mg/dl (10-149) 09/07/23 04:47
LDL Cholesterol, Calc 81 mg/dl 09/07/23 04:47
VLDL Cholesterol, Calc 20 mg/dl (0-30) 09/07/23 04:47
HDL Cholesterol 38 mg/dl 09/07/23 04:47
09/05/23
22:32
[id number] Pept [id number]
LAB Results
09/05/23 09/06/23 09/06/23
23:54 04:38 12:03
Troponin I 0.095 H* 0.089 H* 0.078 H*
Physical Exam
EENT: Anicteric
Cardiovascular: Rhythm/rate is irregular
Respiratory: Respiratory effort normal
GI: Soft
Neuro/Psych: Alert
Data Reviewed
-
Date of Service: September 07, 2023
Medical Decision Making: Reviewed Test Results
X-Ray/CT/US/MRI/NUC/PET: Image Personally Visualized and interpreted
Labs: Labs Reviewed by me
--- NOTE | 2023-09-07 11:00 | PTCARENOTE ---
At 0700 patient received in bed. Denies chest pain/SOB/No nausea no vomiting; tolerating food without difficulties. BP via left FA. At this time 129/82 MAP 94; At rest, while sleeping Afib 99; with minimum activities, such as Standing at the bed to
urinate HR Afib 143; Levophed has been off since 3am. Milrone 0.125/3.5ml infusing per current order via RT FA #20; . updates given to Festus pt friend and POA
--- NOTE | 2023-09-07 11:00 | CM ---
Addendum entered by Veda Shelton 09/07/23 12:13:
Per [facility] in [facility] indicated that Farxiga is not covered, but the would need to appeal to [phone] also Jardiance will require step therapy pending auth. CM called to the insurance company and following long discussion they indicated both
medications would need peer to peer appeal.
Original Note:
Patient seen at bedside. Patient states that he lives alone in a 3 story home in [place] [place] and that his sister can have medical information, no phone number provided. Patient has no DME at home and no needs at this time. Patient indicated that he
uses the [facility] in [facility] and his PCP was Dr. Del Rio but patient could not remember his PCP last name. Patient denied any supports needed at this time and indicated that he would go home when medically cleared. CM will continue to follow for
discharge planning needs.
Plan; home with VN no needs vs home with VN; watch for home needs
--- NOTE | 2023-09-07 15:28 | W.PN.UPDATE ---
Update Note
Progress Note Update
reassessed. comfortable. remains in afib. reviewed issues with the patient and his family who are at the bedside. Sounds as if his sister is well as one of his daughters are the main people to discuss medical issues with although one of his other
daughters as well as his ex- who is a nurse were at the bedside. Patient had recent hospitalization at [facility]. Records are in the chart. During that hospitalization he was in sinus rhythm as documented by ECGs. Patient did have prior
history of PAF. Exact onset of A-fib unclear. Considering patient's cardiomyopathy and presentation with heart failure would favor a rhythm control strategy. Of note patient had been on Eliquis but had missed doses prior to admission. Would
consider AIDA cardioversion when patient's condition is stable to do so. Patient will be at high risk for procedures due to severe cardiomyopathy. Of note prior records suggest the patient had an ICD shock in the past related to VT VF which was
felt to be precipitated by heart failure on last admission.
-Continue current medical therapy including milling and milrinone and diuretic
-Rate controlled atrial fibrillation
-ICD interrogation to further review timing of A-fib
-Eliquis
-Consider AIDA/cardioversion later this admission. Patient will also likely need antiarrhythmic to maintain sinus. Limited options with low EF may need to consider amiodarone.
[2023-09-07] MEDS: PRIMACOR 20 MG 100 IV (16:13)
--- NOTE | 2023-09-07 16:16 | PTCARENOTE ---
patient in bed. Denies chest pain, generally weakness and fatigue. BP via left upper arm 112/75 Afib 702; 96/2L of oxygen via nasal canula. Milrone 0.125 /3.5 infusing per current order via RT Fa . Lasix adm per order. pt voiding in a urinal . with
mild activities HR increasing to Afib 140' s pt encouraged to use call chaudhry for assistance. call chaudhry within reach
--- NOTE | 2023-09-07 19:27 | PTCARENOTE ---
Addendum entered by Nunu Parker RN 09/07/23 19:29:
milrinone gtt at 0.125mcg/kg/hr 3.5cc an hour infusing without difficulty.
Original Note:
pt received from previous rn- aox3, able to make needs known. on 2LNC, afib on monitor. denies pain and no complaints at this time. aware of npo status at midnight- verbalized understanding. all safety precautions in place, call chaudhry within reach.
--- NOTE | 2023-09-07 19:30 | PTCARENOTE ---
pt received from previous rn- aox3, able to make needs known. on 2LNC, afib on monitor. denies pain and no complaints at this time. aware of npo status at midnight- verbalized understanding. all safety precautions in place, call chaudhry within reach.
milrinone gtt at 0.125mcg/kg/min 3.5cc an hour infusing without difficulty.
[2023-09-07] MEDS: XANAX 0.5 MG PO (23:16)
[2023-09-08] VITALS (74 sets, daily range): BP systolic 62–143; BP diastolic 51–114; BMI 29.7
--- NOTE | 2023-09-08 00:02 | PTCARENOTE ---
pt assessment unchanged. given xanax as per order for anxiety. oob to bathroom and pm care. remains in afib.
--- NOTE | 2023-09-08 04:58 | PTCARENOTE ---
assessment unchanged. pt resting comfortably
[2023-09-08 05:37] LABS: ALT (SGPT) 87 U/L (0-50); AST (SGOT) 48 U/L (17-59); Albumin 3.3 g/dl (3.5-5.0); Alkaline Phosphatase 76 U/L (38-126); Blood Urea Nitrogen 27 mg/dl (9-20); Calcium 9.1 mg/dl (8.4-10.2); Carbon Dioxide 26 mmol/L (22-30); Chloride 99 mmol/L (98-107); Estimated Creatinine Clearance 65 ml/min; Glucose 101 mg/dl (70-99); Potassium 3.9 mmol/L (3.5-5.1); Sodium 134 mmol/L (135-145); Total Bilirubin 1.3 mg/dl (0.2-1.3); eGFR > 60.00
--- NOTE | 2023-09-08 05:56 | PTCARENOTE ---
pt with long run of vt broke out and back into afib- pt asleep- woken up- denies cp or discomfort. bp 105/84. kim rosales at bedside. add on labs. no further orders
[2023-09-08 06:28] LABS: Magnesium 1.9 mg/dl (1.6-2.3)
[2023-09-08] MEDS: MAGNESIUM SULFATE 100 IV (06:52)
--- NOTE | 2023-09-08 07:28 | W.PN.INTV ---
Today's Communication / Plan
Recommendations
O2 protocol
IV amiodarone, milrinone
Assessment
-
Assessment:
Mr Juan Daniel Raman is a 63/M adm 09-04 with 3-5 d h/o worsening dyspnea, orthopnea and nonproductive cough. Known h/o CHF with EF 20% and recurrent adm for AECHF. At ER presented uncontrolled AFib, started on diltiazem gtt, IV furosemide. [employer] called
09-05 due to hypotension, bradycardia and dyspnea, diltiazem gtt discontinued, started on NE and transferred to ICU
Impression:
Severe bradycardia
Suspected related to CCB gtt and oral BB
Hypotension, due to severe bradycardia
AECHF
NSVT 09-07
Elevated troponins
Elevated BNP
Elevated D-dimer
Mild hyponatremia
Compensated resp alkalosis
Elevated Cr
Mild transaminitis
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
CHF: ICM
S/p AICD
HTN
PAFib on apixaban
Plan:
Transferred to ICU after [facility] [employer] [facility] evaluation at IMU 09-05
Severe bradycardia and hypotension
IV diltiazem gtt discontinued 09-05
Started NE, milrinone 09-05
NE off since 3 am 09-06
Continue milrinone
NSVT 09-07
Started IV amiodarone gtt per cards, follow response
Keep asp precs
MS has improved and seems appropriate earlier this morning
O2 protocol, keep POx >=92%
Inpatient limited TTE: LVEF 15-20%, RV hypokinetic, cannot exclude
Noted elevated D-dimer, certainly at risk for VTE, though already on apixaban and clinical presentation compatible with AECHF compounded by severe bradycardia
Chest CTA and BEE doppler negative
Cards following closely
Continue IV diuretic, follow response
Continue BB, dapagliflozin, spironolactone
Continue apixaban
Can transfer to IVU if OK with cards, will sign off then
skilled nursing prognosis seems guarded
Noted full code status
Critical care time: 35 min
Subjective Dataa
Subjective Data
Date of Service:
Date of Service: September 08, 2023
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
Subjective:
Multiple NSVT episodes this morning
Cardiology following closely, continues on milrinone drip
Review of Systems
HEENT: Dysphagia (n)
Cardiopulmonary: Dyspnea (n at rest on O2)
GI: Abdominal Pain (n), Nausea (n) and Vomiting
Neuro: Weakness
Objective Data
Data Reviewed
Vital Signs / I&O / Oxygen:
Vital Signs
Temp Pulse Resp BP Pulse Ox
98.0 F 105 21 105/84 96
09/08/23 03:10 09/08/23 05:53 09/08/23 05:53 09/08/23 05:53 09/08/23 05:53
Intake and Output
09/07/23 09/08/23 09/09/23
06:59 06:59 06:59
Intake Total 1613.0 / 1616.5 384.0 / 384.0
Output Total 1400 / 1400 2575 / 2575
Balance 213.0 / 216.5 -2191.0 / -2191.0
SaO2 96
Nasal Cannula flow liters per 2
minute
Physical Exam
General: Comfortable
HEENT: Normocephalic and Moist Mucous Membranes
Cardiovascular: Regular Rhythm and Peripheral Edema (n)
Respiratory: Wheeze, Crackles, Non-Labored Respirations (n), Accessory Resp Muscle Use (n) and Stridor (n)
GI: Soft, Non Distended and Non Tender
Neurology: Awake, Oriented and No Motor Deficits
Skin: Warm
Labs/Micro/Reports
Lab Data
09/06/23 Unknown
09/08/23 04:53
--- NOTE | 2023-09-08 07:33 | W.PN.HOSP.TC ---
Today's Communication/Plan
-
Continue with IV Lasix
Continue with milrinone
For AIDA cardioversion
Assessment / Plan
Assessment / Plan
IMPRESSION:
63 Male h/o NC with subsequent cardiomyopathy, EF 20% s/p AICD-ppm, recurrent admissions for CHF exacerbations, afib on AC presenting to ED with uncontrolled afib/flutter, dyspnea, orthopnea and pnd.
1. Acute CHF Exacerbation - Acute on chronic CHF with depressed EF.
- Echo 09/06/23 showed severely reduced LV function with EF of 15 to 20% and hypokinetic right ventricle.
- cw IV lasix 40mg iv bid
- 09/05 patient had more shortness of breath with hypotension while on Cardizem probably secondary to further depressed cardiac output. Ever since off of Cardizem and now on milrinone feeling better. Chest CT shows acute pulm edema. No evidence
of PE.
- will hold lisinopril to allow for titrating rate control
- continue spironolactone.
- cardiology following
2. New atrial flutter
History of paroxysmal atrial fibrillation
-Cardizem discontinued due to hypotension and more shortness of breath
- continue beta blockade as tolerated (carvedilol 12.5 bid)
- continue apixaban
- cardiology following-planning on AIDA cardioversion.
3. Broad complex non sustained tachycardia - Vtach vs SVT with aberrancy -patient asymptomatic. No ICD shock delivered. Will check with cardiology. Continue to monitor
4. Anxiety
-Continue with xanax prn
5. Transaminitis - Suspect congestive hepatopathy-improving
Hyperbilirubinemia which is in direct-suspect concurrent Gilbert's. Now normalized
- diuresis
- trend lfts
- echo
DVT PPX - on apixaban
Full Code.
Transfer to IVU if ok from Cards
Anticipated Discharge: > 48 hours
Subjective/Interval History
-
Date of Service: September 08, 2023
Patient was sleeping completely flat in his bed and seemed comfortable. When aroused he says his breathing is much better, able to lie flat, and no chest pain.
Denies any dizziness.
Denies any ICD shocks.
Objective Data
-
Labs:
Laboratory Results
09/08/23
04:53
Sodium 134 L
Potassium 3.9
Chloride 99
Carbon Dioxide 26
BUN 27 H
Creatinine 1.2
Glucose 101 H
Calcium 9.1
Total Bilirubin 1.3
AST 48
ALT 87 H
Alkaline Phosphatase 76
Vital Signs:
Vital Signs
Temp Pulse Resp BP Pulse Ox
98.0 F 105 21 105/84 96
09/08/23 03:10 09/08/23 05:53 09/08/23 05:53 09/08/23 05:53 09/08/23 05:53
I&O
09/07/23 09/08/23 09/09/23
06:59 06:59 06:59
Intake Total 1613.0 / 1616.5 384.0 / 384.0
Output Total 1400 / 1400 2575 / 2575
Balance 213.0 / 216.5 -2191.0 / -2191.0
Review of Systems
-
Constitutional: Denies Fever
EENT: Denies Sore Throat
Respiratory: Denies Cough
Abdomen/GI: Denies Abdominal Pain, Nausea or Vomiting
Neuro: Denies Dizzy or Headache
Physical Exam
-
General: No Apparent Distress
HEENT: Moist Mucous Membranes
Respiratory: Crackles (few bibasal) and Non Labored Respirations; Negative Accessory Resp Muscle Use
Cardiac: S1/S2 and Irregular Rhythm; Negative Tachycardic
GI: Soft and Nontender
Neuro: AO x 3
Psych: Calm; Negative Confused
Data Reviewed
-
Medical Tests (Nuc Med, Echo etc): Image personally visualized and interpreted
[2023-09-08] MEDS: ALDACTONE 25 MG PO (07:34)
[2023-09-08] MEDS: FARXIGA 10 MG PO (07:34)
[2023-09-08] MEDS: COREG 12.5 MG PO (07:34)
[2023-09-08] MEDS: ELIQUIS 5 MG PO ×2 (07:34→18:58)
[2023-09-08] MEDS: LASIX 40 MG IV ×2 (07:35→15:57)
--- NOTE | 2023-09-08 08:00 | PTCARENOTE ---
Received patient from shift manager RN. Patient is somnolent. AAOx4. States that he does feel very fatigued. He is on 2L nasal cannula, lungs diminished, shallow respirations due to effort. Patient is in an afib rhythm on monitor. Milrinone gtt
infusing through right AC. some edema +1 non pitting noted in lower extremities. Patient is NPO for possible AIDA/cardioversion. Using urinal to void. ordered lasix this morning. Patient's skin is intact, he has call chaudhry within reach and able
to make needs known appropriately.
--- NOTE | 2023-09-08 09:03 | W.PN.CD ---
Addendum entered and electronically signed by Yong Nicholas MD 09/08/23 11:35:
Patient developed hypotension with amiodarone bolus (over 30 minutes). Then vagal reaction with diachoresis, nausea, yawning, and pallor
- amiodarone bolus done
- BP improved [place]
- ondansetron x 1
- Let's continue amiodarone for now
- will recheck in 15 minutes
Addendum entered and electronically signed by Yong Nicholas MD 09/08/23 09:40:
ICD (single chamber MDT) reports
- 421 episodes of NSVT including this AM. This AM was NSVT but single chamber device
- This episode of AF started Sep 05
Original Note:
Today's Communication / Plan
-
- diurese with milrinone support.
- I interrogated device and report pending, but looks like VT and he has history of same
- Start amiodarone to suppress VT.
- Ideally, we would reestablish NSR. He's not ready for AIDA just yet
Impression / Plan
-
Impression: 63M with severe ICM EF 15% admitted with HFrEF. Now with recurrent AF and some VT as well.
Plan
Acute hypoxic respiratory insufficiency, in the setting of acute heart failure - wean O2 as tolerated
HFrEF, acute on chronic - diurese with milrinone support.
ICM
- Reports last known EF ~20% and echo this admit with EF 10-20%
- He reports missed doses of furosemide
- GDMT
- He is on carvedilol and milrinone
- continue MRA and SLGT2i (some insurance issues with this)
- MDT ICD - interrogated
-Trend daily weight, I/Os, and BMP with diuresis
VT
- I interrogated device and report pending, but looks like VT and he has history of same
- Start amiodarone to suppress VT. This involves some risk of CV given AF and spotty AC. However, continued VT is higher risk.
Hypotension - developed 09/07/23.
- continue milrinone
- norepi weaned off
- Ideally, we would reestablish NSR. He's not ready for AIDA just yet
Atrial flutter, 2:1 and Paroxysmal atrial fibrillation
- Oral anticoagulation: Apixaban 5mg BID, (missed doses prior to admit)
- Will consider restoring rhythm this hospitalization, will need AIDA guided DCCV
- resume low dose BB
Abnormal troponin, likely non ischemic myocardial injury in the setting of tachyarrhythmia
-Peak on arrival, 0.095
-Chest pain free
CAD, on apixaban, he is not on a statin, fasting lipid profile in am, will start statin based on LFTS
[employer] ICD
Transaminitis, likely in the setting of congestion
Critically ill 38 minutes
Subjective: No CP or palps. Did not feel VT
TTE Apr 15: TDS, EF 15%, valves not well seen
09/06/23 09/08/23
Unknown 04:53
Hgb 13.3
Creatinine 1.2
Generic Name Dose Route Start Last Admin
Trade Name Freq PRN Reason Stop Dose Admin
Furosemide 40 mg 09/06/23 08:00 09/08/23 07:35
Furosemide 40 Mg (10 Mg/Ml) 4 Ml Vial IV 10/04/23 07:59 40 mg
BID AT 0800,1600 JANNA
Apixaban 5 mg 09/06/23 08:00 09/08/23 07:34
Apixaban (Eliquis) 5 Mg Tablet PO 10/04/23 07:59 5 mg
BID JANNA
Spironolactone 25 mg 09/06/23 08:00 09/08/23 07:34
Spironolactone 25 Mg Tablet PO 10/04/23 07:59 25 mg
DAILY JANNA
Carvedilol 12.5 mg 09/06/23 08:00 09/08/23 07:34
Carvedilol 12.5 Mg Tablet PO 10/04/23 07:59 12.5 mg
BID JANNA
Dapagliflozin 10 mg 09/07/23 08:00 09/08/23 07:34
Dapagliflozin (Farxiga) 10 Mg Tablet PO 10/05/23 07:59 10 mg
DAILY JANNA
Milrinone Lactate/Dextrose 20 mg in 100 mls @ 0 mls/hr 09/06/23 16:45 09/07/23 16:13
Primacor 20 Mg IV 100 mls
PER PROTOCOL JANNA
Protocol
Per Protocol
Norepinephrine Bitartrate 4 mg in 250 mls @ 0 mls/hr 09/06/23 12:00 09/06/23 18:23
Levophed IV 250 mls
PER PROTOCOL JANNA
Protocol
Per Protocol
Physical Exam
Vital Signs/Labs
Vital Signs
Temp Pulse Resp BP Pulse Ox
36.4 C 108 28 106/93 92
09/08/23 08:47 09/08/23 08:30 09/08/23 08:30 09/08/23 08:30 09/08/23 08:30
09/07/23 09/08/23 09/09/23
06:59 06:59 06:59
Actual Weight 207 lb 3.752 oz 206 lb 12.697 oz
09/06/23 Unknown
09/08/23 04:53
PT 19.4 Sec (11.4-14.6) H 09/06/23 Unknown
INR 1.66 09/06/23 Unknown
APTT 35.7 Sec (23.4-35.0) H 09/06/23 Unknown
Magnesium 1.9 mg/dl (1.6-2.3) 09/08/23 04:53
Triglycerides 103 mg/dl (10-149) 09/07/23 04:47
LDL Cholesterol, Calc 81 mg/dl 09/07/23 04:47
VLDL Cholesterol, Calc 20 mg/dl (0-30) 09/07/23 04:47
HDL Cholesterol 38 mg/dl 09/07/23 04:47
09/05/23
22:32
Kio-C-Gipqcimavzh Pept [id number]
LAB Results
09/05/23 09/06/23 09/06/23
23:54 04:38 12:03
Troponin I 0.095 H* 0.089 H* 0.078 H*
Physical Exam
Constitutional: No acute distress
EENT: Anicteric and Moist mucous membranes
Cardiovascular: Systolic murmur absent, Diastolic murmur absent, Rhythm/rate is irregular and Pedal edema present
Respiratory: Respiratory effort normal
GI: Soft, Distention absent and Normal bowel sounds
Neuro/Psych: Alert
Data Reviewed
-
Date of Service: September 08, 2023
[2023-09-08] MEDS: CORDARONE 103 MG IV (10:21)
[2023-09-08] MEDS: CORDARONE 518 MG IV (10:22)
--- NOTE | 2023-09-08 11:27 | PTCARENOTE ---
Started Amio gtt at 1040 as charted in JUL. Patient then called out, around 1115, was attempting to use urinal. Pressure is low, MAP still greater than 65. ?PAtient feels very dizzy, SOB. Assisted patient back to bed, laid head flat. Patient
is hot, dizzy, diaphroetic. obtained EKG and asked Dr. Mckeon and Dr. Nicholas to patient's bedside.
--- NOTE | 2023-09-08 11:39 | PTCARENOTE ---
Received patient from film processing shift supervisor RN. Patient is somnolent. AAOx4. States that he does feel very fatigued. He is on 2L nasal cannula, lungs diminished, shallow respirations due to effort. Patient is in an afib rhythm on monitor. Milrinone gtt
infusing through right AC. some edema +1 non pitting noted in lower extremities. Patient is NPO for possible AIDA/cardioversion. Using urinal to void. ordered lasix this morning. Patient's skin is intact, he has call chaudhry within reach and able
to make needs known appropriately.
--- NOTE | 2023-09-08 11:43 | PTCARENOTE ---
Addendum entered by Jody Hernandez RN 09/08/23 11:44:
Patient is diaphretic, feels hot, feels dizzy. Placed patient on 6L nasal cannula. Is having periods of apnea during assessment. RN remaining at bedside.
Original Note:
Dr. Nicholas at bedside, EKG reviewed, awaiting further orders. Amio gtt is continuing at this time at 1 mg/min, as is milrinone gtt.
[2023-09-08] MEDS: LEVOPHED 250 IV (16:10)
--- NOTE | 2023-09-08 16:45 | PTCARENOTE ---
Spoke with cardiology throughout shift. Started Levophed gtt to maintain SBP >90. Currenrtly infusing with milrinone and amio gtt as ordered. Patient does become symptomatic with lasix administration. States feels hot, and has gotten
diaphoretic. Applied condom catheter so patient is able to void without having to change position. Patient feels very SOB and fatigued.
[2023-09-08] MEDS: PRIMACOR 20 MG 100 IV (18:11)
--- NOTE | 2023-09-08 18:22 | PTCARENOTE ---
As per plan at this time, No AIDA, patient deemed too unstable. Had runs of VTach. pacer interrogated. VVI with pacer demand at 40. Has had 421 episodes of VT in the last month or so per [employer]/cardiology. Started patient on amio gtt Patient
dropped pressure, vagal response to amio bolus. Was made bedrest. Restarted levo gtt to maintain systolic BP >90. Patient continues to mentate appropriately. Has been on and off diaphoretic, EKG obtained. Providing supportive care.
[2023-09-08] MEDS: XANAX 0.5 MG PO (18:59)
--- NOTE | 2023-09-08 19:24 | PTCARENOTE ---
pt received from previous rn- levophed, amio and milrinone gtts continue- see flowsheet. plan of care discussed with Dr. Araiza- pt ordered for picc line- explained to pt verbalized understanding. pt in afib, levo to maintain systolic >90. on 4LNC.
per Dr. araiza ok to given xanax. condom cath intact. all safety precautions in place, call chaudhry within reach.
--- NOTE | 2023-09-08 20:55 | PTCARENOTE ---
right picc line placed by iv team- cxr for confirmation. both lumens flush with good blood return. levo and amio infusing through picc. poc discussed with kim rosales.
[2023-09-08] MEDS: TYLENOL 650 MG PO (21:03)
--- NOTE | 2023-09-08 21:13 | PTCARENOTE ---
2103- pt sinus tach 110s on monitor.
--- NOTE | 2023-09-08 22:07 | PTCARENOTE ---
pt back in afib/flutter. rate 80-90s. resting comfortably. tylenol given for headache.
[2023-09-08] MEDS: ATIVAN 0.25 MG IV (23:44)
[2023-09-08] MEDS: NSS (PRESERVATIVE FREE) 0.125 ML IV (23:44)
[2023-09-09] VITALS (59 sets, daily range): BP systolic 61–137; BP diastolic 48–115; BMI 29.9
--- NOTE | 2023-09-09 00:16 | PTCARENOTE ---
pt in and out of afib- to sinus tach, anxious and restless one time ativan ordered and given.
[2023-09-09 04:10] LABS: % Eosinophils 2.8 % (0-6); % Immature Granulocytes 0.4 % (0-0.5); % Lymphocytes 20.8 % (20.5-51.1); Absolute Basophils 0.1 10^3/uL (0-0.2); Absolute Eosinophils 0.3 10^3/uL (0-0.7); Absolute Lymphocytes 1.9 10^3/uL (1.2-3.4); Absolute Monocytes 0.7 10^3/uL (0.1-0.6); Absolute Neutrophils 6.2 10^3/uL (1.4-6.5); Hematocrit 39.1 % (39.0-52.0); Hemoglobin 13.4 g/dL (13.0-18.0); Mean Corp Hgb Conc. 34.3 g/dL (33.0-37.0); Mean Corpuscular Hgb 30.1 pg (27.0-31.0); Mean Corpuscular Volume 87.9 fL (80.0-94.0); Mean Platelet Volume 10.1 fL (7.4-10.4); Nucleated Red Blood Cells % 0 % (-); Platelet Count 286 10^3/uL (130-400); Red Blood Cell Count 4.45 10^6/uL (4.70-6.10); Red Cell Dist. Width 14.4 % (11.5-14.5); White Blood Cell Count 9.2 10^3/uL (4.8-10.8)
[2023-09-09] MEDS: LEVOPHED 250 IV (04:16)
--- NOTE | 2023-09-09 04:21 | PTCARENOTE ---
assessment unchanged. pt in and out of afib. remains on levo, amio and milrinone. labs sent.
[2023-09-09 04:32] LABS: Blood Urea Nitrogen 35 mg/dl (9-20); Calcium 9.2 mg/dl (8.4-10.2); Carbon Dioxide 25 mmol/L (22-30); Chloride 96 mmol/L (98-107); Estimated Creatinine Clearance 60 ml/min; Glucose 114 mg/dl (70-99); Magnesium 2.3 mg/dl (1.6-2.3); Potassium 4.2 mmol/L (3.5-5.1); Sodium 133 mmol/L (135-145); eGFR > 60.00
[2023-09-09] MEDS: CORDARONE 518 MG IV (05:46)
[2023-09-09] MEDS: ELIQUIS 5 MG PO ×2 (07:31→19:46)
[2023-09-09] MEDS: FARXIGA 10 MG PO (07:31)
[2023-09-09] MEDS: ALDACTONE 25 MG PO (07:32)
[2023-09-09] MEDS: LASIX 40 MG IV ×2 (07:32→16:10)
--- NOTE | 2023-09-09 07:35 | W.PN.INTV ---
Today's Communication / Plan
Recommendations
IV amiod, milrinone
Low dose NE
AC
Assessment
-
Assessment:
Mr Juan Daniel Raman is a 63/M adm 09-04 with 3-5 d h/o worsening dyspnea, orthopnea and nonproductive cough. Known h/o CHF with EF 20% and recurrent adm for AECHF. At ER presented uncontrolled AFib, started on diltiazem gtt, IV furosemide. PLASTIC MOLDER called
09-05 due to hypotension, bradycardia and dyspnea, diltiazem gtt discontinued, started on NE and transferred to ICU
Impression:
Severe bradycardia
Suspected related to CCB gtt and oral BB
Hypotension, due to severe bradycardia
AECHF
NSVT 09-07
Elevated troponins
Elevated BNP
Elevated D-dimer
Mild hyponatremia
Compensated resp alkalosis
Elevated Cr
Mild transaminitis
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
CHF: ICM
S/p AICD
HTN
PAFib on apixaban
Plan:
Transferred to ICU after PLASTIC MOLDER evaluation at IMU 09-05
Severe bradycardia and hypotension
IV diltiazem gtt discontinued 09-05
Started NE, milrinone 09-05
NE off since 3 am 09-06
Continue milrinone gtt
NSVT 09-07
Started IV amiodarone gtt
Keep asp precs
Decreased MS has resolved
O2 protocol, keep POx >=92%, currently on RA with POx 99%
Inpatient limited TTE: LVEF 15-20%, RV hypokinetic, cannot exclude
Noted elevated D-dimer, certainly at risk for VTE, though already on apixaban and clinical presentation compatible with AECHF compounded by severe bradycardia
Chest CTA and BEE doppler negative
Cards following closely
Continue IV diuretic, follow response
Continue BB, dapagliflozin, spironolactone
Continue apixaban
Requiring low dose NE on 09-07 due to hypotension after starting amiodarone IV gtt
RUE PICC placed 09-07
intermodal truck driver prognosis seems guarded
Noted full code status
Critical care time: 35 min
Subjective Dataa
Subjective Data
Date of Service:
Date of Service: September 09, 2023
Chief Complaint: Director Of Planning Follow Up
Subjective:
No major events reported overnight
Atrial fibrillation resolved last night
Appears more awake and conversant today, overall feels better
Complains of intermittent urination due to use of Lasix
Currently on room air with saturation 99%
Review of Systems
General: Fever (n), Sweats (n), Chills (n) and Satisfactory Appetite (n)
Cardiopulmonary: Dyspnea, Cough (n), Wheezing (n), Chest Pain (n) and Edema (n)
GI: Abdominal Pain (n), Nausea (n) and Vomiting (n)
Neuro: Weakness
Objective Data
Data Reviewed
Vital Signs / I&O / Oxygen:
Vital Signs
Temp Pulse Resp BP Pulse Ox
98 F 83 25 119/97 96
09/09/23 02:59 09/09/23 07:32 09/09/23 05:30 09/09/23 07:32 09/09/23 05:30
Intake and Output
09/08/23 09/09/23 09/10/23
06:59 06:59 06:59
Intake Total 384.0 / 387.5 1657.4 / 1692.6 35.2 / 35.2
Output Total 2575 / 2575 2600 / 2600
Balance -2191.0 / -2187.5 -942.6 / -907.4 35.2 / 35.2
SaO2 96
Nasal Cannula flow liters per 4
minute
Physical Exam
General: Comfortable
HEENT: Normocephalic and Moist Mucous Membranes
Cardiovascular: Regular Rhythm and Peripheral Edema (n)
Respiratory: Wheeze, Crackles, Non-Labored Respirations (n), Accessory Resp Muscle Use (n) and Stridor (n)
GI: Soft, Non Distended and Non Tender
Neurology: Awake, Oriented and No Motor Deficits
Skin: Warm
Labs/Micro/Reports
Lab Data
09/09/23 03:48
09/09/23 03:48
--- NOTE | 2023-09-09 07:55 | PTCARENOTE ---
Received patient from lieutenant shift supervisor. Patient's mentation remains the same, he is drowsy but easily arousable, conversant, oriented. He remains on 4L, saturations 99%. lungs diminished and dyspneic on exertion of turning himself in bed. Patient is
in a sinus rhythm this morning. Will obtain EKG. Milrinone, amio, and levophed gtts all infusing through right double lumen PICC as charted in worklist handoff. Patient denies pain. Patient was NPO for possible AIDA this morning, Dr. Hernandez at
bedside and order placed for heart healthy diet with fluid restriction. Patient uses urinal to void. Is able to make needs known. call chaudhry within reach, bed alarm on.
--- NOTE | 2023-09-09 08:01 | W.PN.CD ---
Today's Communication / Plan
-
Patient has been on amiodarone since yesterday. VT appears stable. Patient is also spontaneously converted to sinus rhythm early this morning.
Hopefully with additional medical therapy and maintaining sinus rhythm we will have more success treating patient's heart failure.
Continue IV amiodarone today.
Continue milrinone
Continue diuretic
Wean Levophed
Continue to optimize GDMT
Additional review of records regarding last assessment of CAD
Impression / Plan
-
Impression: 63M with severe ICM EF 15% admitted with HFrEF. Now with recurrent AF and some VT as well.
Plan
Acute hypoxic respiratory insufficiency, in the setting of acute heart failure - wean O2 as tolerated
HFrEF, acute on chronic - diurese with milrinone support.
ICM
- Reports last known EF ~20% and echo this admit with EF 10-20%
- He reports missed doses of furosemide and Eliquis prior to admission.
- GDMT
- He is on carvedilol and milrinone
- continue MRA and SLGT2i (some insurance issues with this)
- MDT ICD - interrogated
-Trend daily weight, I/Os, and BMP with diuresis
VT
-Patient had V's T and an ICD shock on prior admission about a month ago some additional VT noted placed on amiodarone this admission.
-Amiodarone initiated for VT on 09/08/2023.
- amiodarone to suppress VT and A-fib. Patient now back in sinus rhythm.
Hypotension - developed 09/07/23.
- continue milrinone
- norepi wean off.
Atrial flutter, 2:1 and Paroxysmal atrial fibrillation
- Oral anticoagulation: Apixaban 5mg BID,-
-Patient converted to sinus rhythm in embossing toolsetter hours on 09/09/2023. Continue Eliquis, amiodarone and beta-radu.
Abnormal troponin, likely non ischemic myocardial injury in the setting of tachyarrhythmia
-Peak on arrival, 0.095
-Chest pain free
CAD, on apixaban, he is not on a statin, fasting lipid profile in am, will start statin based on LFTS
[employer] ICD
Transaminitis, likely in the setting of congestion
Critically ill 40 minutes
Subjective: No CP or palps. Breathing comfortably at rest on 2 L nasal cannula.
TTE Apr 15: TDS, EF 15%, valves not well seen
09/06/23 09/08/23
Unknown 04:53
Hgb 13.3
Creatinine 1.2
Generic Name Dose Route Start Last Admin
Trade Name Freq PRN Reason Stop Dose Admin
Furosemide 40 mg 09/06/23 08:00 09/08/23 07:35
Furosemide 40 Mg (10 Mg/Ml) 4 Ml Vial IV 10/04/23 07:59 40 mg
BID AT 0800,1600 JANNA
Apixaban 5 mg 09/06/23 08:00 09/08/23 07:34
Apixaban (Eliquis) 5 Mg Tablet PO 10/04/23 07:59 5 mg
BID JANNA
Spironolactone 25 mg 09/06/23 08:00 09/08/23 07:34
Spironolactone 25 Mg Tablet PO 10/04/23 07:59 25 mg
DAILY JANNA
Carvedilol 12.5 mg 09/06/23 08:00 09/08/23 07:34
Carvedilol 12.5 Mg Tablet PO 10/04/23 07:59 12.5 mg
BID JANNA
Dapagliflozin 10 mg 09/07/23 08:00 09/08/23 07:34
Dapagliflozin (Farxiga) 10 Mg Tablet PO 10/05/23 07:59 10 mg
DAILY JANNA
Milrinone Lactate/Dextrose 20 mg in 100 mls @ 0 mls/hr 09/06/23 16:45 09/07/23 16:13
Primacor 20 Mg IV 100 mls
PER PROTOCOL JANNA
Protocol
Per Protocol
Norepinephrine Bitartrate 4 mg in 250 mls @ 0 mls/hr 09/06/23 12:00 09/06/23 18:23
Levophed IV 250 mls
PER PROTOCOL JANNA
Protocol
Per Protocol
Physical Exam
Vital Signs/Labs
Vital Signs
Temp Pulse Resp BP Pulse Ox
96.5 F L 83 29 119/97 95
09/09/23 07:44 09/09/23 07:32 09/09/23 07:31 09/09/23 07:32 09/09/23 07:51
09/08/23 09/09/23 09/10/23
06:59 06:59 06:59
Actual Weight 93.8 kg 94.4 kg
09/09/23 03:48
09/09/23 03:48
PT 19.4 Sec (11.4-14.6) H 09/06/23 Unknown
INR 1.66 09/06/23 Unknown
APTT 35.7 Sec (23.4-35.0) H 09/06/23 Unknown
Magnesium 2.3 mg/dl (1.6-2.3) 09/09/23 03:48
Triglycerides 103 mg/dl (10-149) 09/07/23 04:47
LDL Cholesterol, Calc 81 mg/dl 09/07/23 04:47
VLDL Cholesterol, Calc 20 mg/dl (0-30) 09/07/23 04:47
HDL Cholesterol 38 mg/dl 09/07/23 04:47
09/05/23
22:32
[id number] Pept [id number]
LAB Results
09/06/23
12:03
Troponin I 0.078 H*
Physical Exam
Constitutional: No acute distress
Cardiovascular: Rhythm & rate is regular
Respiratory: Respiratory effort normal
GI: Soft and Non tender
Neuro/Psych: Oriented
Other: Skin
Data Reviewed
-
Date of Service: September 09, 2023
EKG: Report Reviewed by me
Echo: Report Reviewed by me
Medical Tests (PFT, Pathology etc): Report Reviewed by me
Labs: Labs Reviewed by me
--- NOTE | 2023-09-09 08:41 | W.PN.HOSP.TC ---
Today's Communication/Plan
-
Wean vasopressors as able.
Continue with IV Lasix, milrinone and amiodarone
Assessment / Plan
Assessment / Plan
IMPRESSION:
63 Male h/o NH with subsequent cardiomyopathy, EF 20% s/p AICD-ppm, recurrent admissions for CHF exacerbations, afib on AC presenting to ED with uncontrolled afib/flutter, dyspnea, orthopnea and pnd.
Acute CHF Exacerbation - Acute on chronic CHF with depressed EF.
- Echo 09/06/23 showed severely reduced LV function with EF of 15 to 20% and hypokinetic right ventricle.
- cw IV lasix 40mg iv bid and milrinone
- 09/05 patient had more shortness of breath with hypotension while on Cardizem probably secondary to further depressed cardiac output. Ever since off of Cardizem and now on milrinone feeling better. Chest CT shows acute pulm edema. No evidence
of PE.
- will hold lisinopril to allow for titrating rate control
- continue spironolactone.
- cardiology following
New atrial flutter -paroxysmal - In SR today
History of paroxysmal atrial fibrillation
- Cardizem discontinued due to hypotension and more shortness of breath
- continue beta blockade as tolerated (carvedilol 12.5 bid)
- continue apixaban
- cardiology following
Non sustained tachycardia- confirmed by ICD interrogation - now on Amiodrip . Hypotension with amnio drip noted. Continued on maintenance drip now.
Hypotension - suspect possible combination of amio and cardiogenic - on low dose vasopressor. No focal symptoms and signs of infection. Wean as able.
Anxiety
-Continue with xanax prn
Transaminitis - Suspect congestive hepatopathy-improving
Hyperbilirubinemia which is in direct-suspect concurrent Gilbert's. Now normalized
DVT PPX - on apixaban
Full Code.
Dispo - ICU due to need of pressors
DW RN
Total time spent on today's encounter was 52 minutes which included time spent in counseling the patient regarding diagnosis and treatment plan as listed above, goals of care, and symptom management. Case was discussed with nursing staff,
specialists, . All labs and imaging personally reviewed by me. Remainder the time spent in detailed review of previous records, lab data, imaging, and other medical provider documentation.
Anticipated Discharge: > 48 hours
Subjective/Interval History
-
Date of Service: September 09, 2023
No chest pain.
Denies any dizziness. He is on Levophed.
Breathing bit labored today( pt is lying flat in bed). But in general improved since admission.
No nausea vomiting. Tolerating diet.
Objective Data
-
Labs:
Laboratory Results
09/09/23
03:48
WBC 9.2
Hgb 13.4
Hct 39.1
Plt Count 286
Sodium 133 L
Potassium 4.2
Chloride 96 L
Carbon Dioxide 25
BUN 35 H
Creatinine 1.3
Glucose 114 H
Calcium 9.2
Vital Signs:
Vital Signs
Temp Pulse Resp BP Pulse Ox
96.5 F L 83 29 119/97 95
09/09/23 07:44 09/09/23 07:32 09/09/23 07:31 09/09/23 07:32 09/09/23 07:51
I&O
09/08/23 09/09/23 09/10/23
06:59 06:59 06:59
Intake Total 384.0 / 387.5 1657.4 / 1692.6 35.2 / 35.2
Output Total 2575 / 2575 2600 / 2600
Balance -2191.0 / -2187.5 -942.6 / -907.4 35.2 / 35.2
Review of Systems
-
Constitutional: Denies Fever or Chills
EENT: Denies Sore Throat
Respiratory: Denies Cough
Abdomen/GI: Denies Diarrhea
Genitourinary: Denies Dysuria
Neuro: Denies Dizzy
Physical Exam
-
General: No Apparent Distress
HEENT: Moist Mucous Membranes
Respiratory: Clear to Auscultation
Cardiac: Regular Rhythm (SR today) and S1/S2; Negative Tachycardic
GI: Soft
Neuro: AO x 3
Data Reviewed
-
Labs: Labs Reviewed by me
--- NOTE | 2023-09-09 11:13 | CM ---
Patient seen at bedside, patient indicated that he was discouraged and indicated that he was hoping to feel better soon. CM will continue to follow for discharge planning needs.
Plan; TBD; pending work up/ functional status
--- NOTE | 2023-09-09 12:03 | PTCARENOTE ---
No change in patient's assessment. Levophed has been stopped. SBP has been above 90. Updated patient's friend/primary contact Loyda. Patient continues to be very sleepy. Feels 'wiped out'
[2023-09-09] MEDS: XANAX 0.5 MG PO (19:46)
[2023-09-09] MEDS: NSS (PRESERVATIVE FREE) 0.125 ML IV (21:27)
[2023-09-09] MEDS: ATIVAN 0.25 MG IV (21:27)
[2023-09-09] MEDS: PRIMACOR 20 MG 100 IV (23:50)
[2023-09-10] VITALS (45 sets, daily range): BP systolic 97–131; BP diastolic 58–97; BMI 28.7
--- NOTE | 2023-09-10 | PTCARENOTE ---
Pt received at 19:00. Initial assessment as documented. Pt c/o increased anxiety at night, PRN xanax given and not effective. Pt received x1 dose of 0.25mg ativan IVP--effective.
[2023-09-10 04:36] LABS: Hematocrit 41.3 % (39.0-52.0); Hemoglobin 14.4 g/dL (13.0-18.0); Mean Corp Hgb Conc. 34.9 g/dL (33.0-37.0); Mean Corpuscular Hgb 30.6 pg (27.0-31.0); Mean Corpuscular Volume 87.7 fL (80.0-94.0); Mean Platelet Volume 9.9 fL (7.4-10.4); Platelet Count 240 10^3/uL (130-400); Red Blood Cell Count 4.71 10^6/uL (4.70-6.10); Red Cell Dist. Width 14.2 % (11.5-14.5); White Blood Cell Count 12.2 10^3/uL (4.8-10.8)
[2023-09-10 05:23] LABS: Blood Urea Nitrogen 27 mg/dl (9-20); Calcium 9.3 mg/dl (8.4-10.2); Carbon Dioxide 28 mmol/L (22-30); Chloride 94 mmol/L (98-107); Estimated Creatinine Clearance 71 ml/min; Glucose 107 mg/dl (70-99); Potassium 4.2 mmol/L (3.5-5.1); Sodium 133 mmol/L (135-145); eGFR > 60.00
[2023-09-10 06:01] LABS: Glucose - Point of Care 170 mg/dl (70-99)
--- NOTE | 2023-09-10 06:33 | PTCARENOTE ---
Pt refused bath/sheet change this morning. Pt frequently taking O2 off, pulse ox decreasing into the 70s while asleep. Pt on 4L NC.
--- NOTE | 2023-09-10 07:46 | W.PN.INTV ---
Today's Communication / Plan
Recommendations
O2
Amio po
Milrinone
R/LHC
Can transfer to IVU after R/LHC
Assessment
-
Assessment:
Mr Juan Daniel Raman is a 63/M adm 09-04 with 3-5 d h/o worsening dyspnea, orthopnea and nonproductive cough. Known h/o CHF with EF 20% and recurrent adm for AECHF. At ER presented uncontrolled AFib, started on diltiazem gtt, IV furosemide. OPERATIONS ADMINISTRATIVE ASSISTANT called
09-05 due to hypotension, bradycardia and dyspnea, diltiazem gtt discontinued, started on NE and transferred to ICU
Impression:
Severe bradycardia
Suspected related to CCB gtt and oral BB
Hypotension, due to severe bradycardia
AECHF
NSVT 09-07
Elevated troponins
Elevated BNP
Elevated D-dimer
Mild hyponatremia
Compensated resp alkalosis
Elevated Cr
Mild transaminitis
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
CHF: ICM
S/p AICD
HTN
PAFib on apixaban
Plan:
Transferred to ICU after OPERATIONS ADMINISTRATIVE ASSISTANT evaluation at IMU 09-05
Severe bradycardia and hypotension
IV diltiazem gtt discontinued 09-05
Started NE, milrinone 09-05
NE off since 3 am 09-06
Continue milrinone gtt
NSVT 09-07
Started IV amiodarone gtt, now transtioned to po
Keep asp precs
Decreased MS has resolved
O2 protocol, keep POx >=92%, currently on RA with POx 99%
Inpatient limited TTE: LVEF 15-20%, RV hypokinetic, cannot exclude
Noted elevated D-dimer, certainly at risk for VTE, though already on apixaban and clinical presentation compatible with AECHF compounded by severe bradycardia
Chest CTA and BEE doppler negative
Cards following closely
Continue IV diuretic, follow response
Continue BB, dapagliflozin, spironolactone
Continue apixaban
Requiring low dose NE on 09-07 due to hypotension after starting amiodarone IV gtt. NE off
RUE PICC placed 09-07
R/LHC pending
detention prognosis seems guarded
Noted full code status
Candidate to IVU after R/LHC, will sign off then
Subjective Dataa
Subjective Data
Date of Service:
Date of Service: September 10, 2023
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
Subjective:
No major events reported overnight
IV amiodarone transition to p.o.
Off norepinephrine
Continue on milrinone
Reports improvement of dyspnea
Review of Systems
General: Fever (n), Sweats (n), Chills (n) and Satisfactory Appetite
HEENT: Epistaxis (n) and Dysphagia (n)
Cardiopulmonary: Dyspnea (n at rest), Dyspnea on Exertion (significant in very mild effort) and Hemoptysis (n)
GI: Abdominal Pain (n), Nausea (n) and Vomiting
Neuro: Weakness
Objective Data
Data Reviewed
Vital Signs / I&O / Oxygen:
Vital Signs
Temp Pulse Resp BP Pulse Ox
96.0 F L 80 31 113/82 96
09/10/23 03:15 09/10/23 03:00 09/10/23 03:00 09/10/23 03:00 09/10/23 05:54
Intake and Output
09/09/23 09/10/23 09/11/23
06:59 06:59 06:59
Intake Total 1657.4 / 1692.6 2010.
Output Total 2600 / 2600 4150 / 4150
Balance -942.6 / -907.4 -2138.9 / -2138.9
SaO2 96
Nasal Cannula flow liters per 4
minute
Physical Exam
General: Comfortable
HEENT: Normocephalic and Moist Mucous Membranes
Cardiovascular: Regular Rhythm and Peripheral Edema (n)
Respiratory: Wheeze, Crackles, Non-Labored Respirations (n), Accessory Resp Muscle Use (n) and Stridor (n)
GI: Soft, Non Distended and Non Tender
Neurology: Awake, Oriented and No Motor Deficits
Skin: Warm
Labs/Micro/Reports
Lab Data
09/10/23 04:28
09/10/23 04:28
--- NOTE | 2023-09-10 08:17 | W.PN.CD ---
Addendum entered and electronically signed by Schuyler Hernandez MD 09/10/23 09:06:
reviewed issues with patient and his sister. Also reviewed with interventional cardiology
plan for right and left heart cath this afternoon
Original Note:
Today's Communication / Plan
-
feels better .still on 4liters . He has had consistent diuresis
Wean O2
continue diuretic
He is off Levo
continue mirinone
No recurrent VT or afib. Will transition to oral amiodarone
No CAD reported in past. Last cath in 2019. Would favor cath this admit. will review timing with interventional team
Impression / Plan
-
Impression: 63M with severe ICM EF 15% admitted with HFrEF. Now with recurrent AF and some VT as well.
Plan
Acute hypoxic respiratory insufficiency, in the setting of acute heart failure - wean O2 as tolerated
HFrEF, acute on chronic -
-diurese with milrinone support.
- wean O2
ICM
- Reports last known EF ~20% and echo this admit with EF 10-20%
- He reports missed doses of furosemide and Eliquis prior to admission.
- GDMT
- He is on carvedilol and milrinone
- continue MRA and SLGT2i (some insurance issues with this)
- MDT ICD - interrogated
-Trend daily weight, I/Os, and BMP with diuresis
- reported as nonischemic and he reports no blckages on cath 2019 . With issues with HF and VT would favor caththis admit
VT
-Patient had V's T and an ICD shock on prior admission about a month ago some additional VT noted placed on amiodarone this admission.
-Amiodarone initiated for VT on 09/08/2023.
- amiodarone to suppress VT and A-fib. Patient now back in sinus rhythm.
Hypotension - improved.
off pressor and on milrinone
Atrial flutter, 2:1 and Paroxysmal atrial fibrillation
- Oral anticoagulation: Apixaban 5mg BID,-
-Patient converted to sinus rhythm in open hearth melter hours on 09/09/2023. Continue Eliquis, amiodarone and beta-radu.
Abnormal troponin, likely non ischemic myocardial injury in the setting of tachyarrhythmia
-Peak on arrival, 0.095
-Chest pain free
CAD, on apixaban, he is not on a statin, fasting lipid profile in am, will start statin based on LFTS
[employer] ICD
Transaminitis, likely in the setting of congestion
Critically ill 35 minutes
Subjective: No CP or palps. Breathing comfortably at rest on 4 L nasal cannula.
TTE Apr 15: TDS, EF 15%, valves not well seen
09/06/23 09/08/23
Unknown 04:53
Hgb 13.3
Creatinine 1.2
Generic Name Dose Route Start Last Admin
Trade Name Freq PRN Reason Stop Dose Admin
Furosemide 40 mg 09/06/23 08:00 09/08/23 07:35
Furosemide 40 Mg (10 Mg/Ml) 4 Ml Vial IV 10/04/23 07:59 40 mg
BID AT 0800,1600 JANNA
Apixaban 5 mg 09/06/23 08:00 09/08/23 07:34
Apixaban (Eliquis) 5 Mg Tablet PO 10/04/23 07:59 5 mg
BID JANNA
Spironolactone 25 mg 09/06/23 08:00 09/08/23 07:34
Spironolactone 25 Mg Tablet PO 10/04/23 07:59 25 mg
DAILY JANNA
Carvedilol 12.5 mg 09/06/23 08:00 09/08/23 07:34
Carvedilol 12.5 Mg Tablet PO 10/04/23 07:59 12.5 mg
BID JANNA
Dapagliflozin 10 mg 09/07/23 08:00 09/08/23 07:34
Dapagliflozin (Farxiga) 10 Mg Tablet PO 10/05/23 07:59 10 mg
DAILY JANNA
Milrinone Lactate/Dextrose 20 mg in 100 mls @ 0 mls/hr 09/06/23 16:45 09/07/23 16:13
Primacor 20 Mg IV 100 mls
PER PROTOCOL JANNA
Protocol
Per Protocol
Norepinephrine Bitartrate 4 mg in 250 mls @ 0 mls/hr 09/06/23 12:00 09/06/23 18:23
Levophed IV 250 mls
PER PROTOCOL JANNA
Protocol
Per Protocol
Physical Exam
Vital Signs/Labs
Vital Signs
Temp Pulse Resp BP Pulse Ox
96.0 F L 80 31 113/82 96
09/10/23 03:15 09/10/23 03:00 09/10/23 03:00 09/10/23 03:00 09/10/23 05:54
09/09/23 09/10/23 09/11/23
06:59 06:59 06:59
Actual Weight 94.4 kg 90.6 kg
09/10/23 04:28
09/10/23 04:28
PT 19.4 Sec (11.4-14.6) H 09/06/23 Unknown
INR 1.66 09/06/23 Unknown
APTT 35.7 Sec (23.4-35.0) H 09/06/23 Unknown
Magnesium 2.3 mg/dl (1.6-2.3) 09/09/23 03:48
Triglycerides 103 mg/dl (10-149) 09/07/23 04:47
LDL Cholesterol, Calc 81 mg/dl 09/07/23 04:47
VLDL Cholesterol, Calc 20 mg/dl (0-30) 09/07/23 04:47
HDL Cholesterol 38 mg/dl 09/07/23 04:47
09/05/23
22:32
[id number] Pept [id number]
Physical Exam
Constitutional: No acute distress
Cardiovascular: Rhythm & rate is regular
Respiratory: Respiratory effort normal
GI: Soft
Neuro/Psych: Alert
Data Reviewed
-
Date of Service: September 10, 2023
Medical Decision Making: Reviewed Test Results
EKG: Report Reviewed by me
Echo: Report Reviewed by me
Medical Tests (PFT, Pathology etc): Report Reviewed by me
Labs: Labs Reviewed by me
Critical Care Time (in minutes): 35
[2023-09-10] MEDS: FARXIGA 10 MG PO (08:21)
[2023-09-10] MEDS: ALDACTONE 25 MG PO (08:21)
[2023-09-10] MEDS: FLUSH (NSS) 2 FLUSH IV ×2 (08:22→18:18)
[2023-09-10] MEDS: LASIX 40 MG IV (08:22)
--- NOTE | 2023-09-10 08:49 | W.PN.HOSP.TC ---
Today's Communication/Plan
-
agree with need for cath
amio IV to PO
renew milrinone
Assessment / Plan
Assessment / Plan
pt is a 63 year old male
Acute systolic CHF Exacerbation with hypotension--cannot rule out cardiogenic shock--Acute on chronic CHF with depressed EF--Echo 09/06/23 showed severely reduced LV function with EF of 15 to 20% and hypokinetic right ventricle--cont IV lasix, IV
milrinone--needs cath, will defer to cards--hold lisinopril
New atrial flutter--paroxysmal--History of paroxysmal atrial fibrillation---Cardizem discontinued due to hypotension and more shortness of breath--now on metoprolol, Eliquis--apprec cards
Non sustained ventricular tachycardia--confirmed by ICD interrogation-- amiodarone drip, transition to oral per cards-Hypotension with amnio drip noted--off levophed
Hypotension - suspect possible combination of amio and cardiogenic shock - on low dose vasopressor. No focal symptoms and signs of infection. Wean as able--need cath
Anxiety--xanax prn changed to ativan as worked better
Transaminitis - Suspect congestive hepatopathy-improving--Hyperbilirubinemia which is in direct-suspect concurrent Gilbert's. Now normalized
DVT PPX - on apixaban
Code status--Full Code.
Total Critical Care Time 32 minutes. I was immediately available to the patient and staff. I personally examined, reviewed labs, diagnostic images/reports, interpretations, treatment plans, discussed patient care with other providers and family
or caregivers (if patient is unable to make decisions), entered orders as appropriate and documented the medical record.
Anticipated Discharge: > 48 hours
Subjective/Interval History
-
Date of Service: September 10, 2023
pt c/o cough
Objective Data
-
Labs:
Laboratory Results
09/10/23
04:28
WBC 12.2 H
Hgb 14.4
Hct 41.3
Plt Count 240
Sodium 133 L
Potassium 4.2
Chloride 94 L
Carbon Dioxide 28
BUN 27 H
Creatinine 1.1
Glucose 107 H
Calcium 9.3
Vital Signs:
max temp for 24 hours
09/09/23
12:02
Temp 97.5 F
Vital Signs
Temp Pulse Resp BP Pulse Ox
96.0 F L 84 31 104/78 96
09/10/23 03:15 09/10/23 08:22 09/10/23 03:00 09/10/23 08:22 09/10/23 05:54
I&O
09/09/23 09/10/23 09/11/23
06:59 06:59 06:59
Intake Total 1657.4 / 1692.6 / 2030.3 390.4 / 390.4
Output Total 2600 / 2600 4150 / 4150
Balance -942.6 / -907.4 -2138.9 / -2118.7 390.4 / 390.4
Review of Systems
-
All other systems: Reviewed and negative
Respiratory: Reports Cough
Physical Exam
-
General: Well Developed, Well Nourished and No Apparent Distress
HEENT: Normocephalic, Atraumatic and Oxygen
Respiratory: Crackles (at bases)
Cardiac: Regular Rhythm and S1/S2; Negative Murmur
GI: Soft, Nontender, Nondistended and Normal Bowel Sounds
Musculoskeletal: No Clubbing, No Cyanosis and No Edema
Neuro: Awake and Alert
--- NOTE | 2023-09-10 09:00 | PTCARENOTE ---
Rec'd pt at 0800 awake alert and oriented resting in bed. States he feels ok. Admitted that he was anxious last night which makes it hard to sleep but once he got the Ativan stated it was better. Denies pain. Denies dizziness or headache. Skin is
pink wm and dry. Respirs are unlabored at rest but does get a little VAIL. Rec'd pt on 4L nc- decreased currently to 3l. Sats are 96%. BS are sl decreased at the bases with few faint R base crackles. Coughing an intermittent moist non-prod cough.
Monitor SR with PAC's and isolated PVC's. + pulses. R PT and DP are palp. L PT and DP are weaker to palp but easily audible with the doppler. TR LE edema. KH SCD's in place. Pt remains on IV Amiodarone at 0.5 mg/min and Milrinone at 0.125mcg/kg/min
both infusing via R upper arm DL picc. Site wnl. ABd is round and soft with + BS. Ate breakfast and is now NPO for possible Cardiac Cath later today. Denies nausea. Voiding yellow urine in the urinal. Capped int intact L arm. Dr. Hernandez in to see
pt and updated. Call chaudhry in reach. Plan of care reviewed with pt.
[2023-09-10] MEDS: ELIQUIS PO (09:14)
--- NOTE | 2023-09-10 09:14 | PTCARENOTE ---
Pt will be for cardiac cath today. Will hold Eliquis. Resting currently
[2023-09-10] MEDS: CORDARONE 518 MG IV (10:20)
--- NOTE | 2023-09-10 12:00 | PTCARENOTE ---
Pt resting most of the morning. Overall admits to feeling tired. O2 decreased to 2l at 1100 with sats of 96%. Encouraged pt to sit oob for a little. Pt assisted first oob to the bathroom- voided large amt of yellow urine- has been diuresing since
earlier Lasix. Did oral care and assisted with CHG bath at the bedside. Pt then assisted into the chair but only sat up for about 10 min and then wanted to just rest back in bed. Pt took his O2 off when he first got up and denied shortness of
breath- although does get sl winded with activity. Sats have remained 94-96% on RA. Currently resting back in bed. Awaiting cath this afternoon. Remains NPO.
--- NOTE | 2023-09-10 13:00 | PTCARENOTE ---
Pt with dozing tends to have periods of more shallow breathing and desats to the 86% range. 2l reapplied and sats up to 96%. Awaiting cardiac cath. No other changes. Amiodarone and Milrinone infusing.
--- NOTE | 2023-09-10 13:29 | CM ---
CM following re: discharge planning.
Discussed in Rounds, reviewed pt's chart, met with pt.
Per Rounds meeting, Awaiting cardiac cath, requires 2L NC of O2.
D/C plan: home with anticipated no needs.Family to transport at discharge.
CM will follow with discharge plan updates as hospitalization progresses
--- NOTE | 2023-09-10 14:40 | PTCARENOTE ---
Report given to minilab operator staff, pt currently sent to minilab operator via bed with Amiodarone and Primacor infusing. Voided prior to leaving. No other changes
--- NOTE | 2023-09-10 15:32 | ITS.CL.CATH ---
[employer] - Catheterization
Cardiac Catheterization
Procedure Report:
CARDIAC CATHETERIZATION REPORT
Date of Procedure: 09/10/2023
Referring: Schuyler Hernandez MD
Indication: Recurrent ICD shock in setting of CHF with history of nonischemic cardiomyopathy (reportedly had coronary angiogram 2019)
HEMODYNAMIC DATA (RHC performed at weight 199 pounds)
AO: 103/78
LV: 103/17
PCWP: 24
PA: 55/27
RV: 55/12
RA: 9
Oximetry: Ao 96%, PA 52%, cardiac output 3.1, cardiac index 1.5
LEFT VENTRICULOGRAPHY: Left ventricular enlargement with severe global hypokinesis with visually estimated EF 15%
CORONARY ANGIOGRAPHY
Dominance: Codominant
Left Main: Normal
LAD: Normal
Circumflex: Normal codominant vessel
RCA: Normal codominant vessel
Closure Device: 6 [place] Angio-Seal RFA. Of note, we opted not to use a right radial approach as the patient has cellulitis of the right forearm
Radiation dose (mGy): 293
DAP (cm2.Gy): 28.3
Fluoroscopy time: 3.2 minutes
CONCLUSIONS:
1. Elevated left heart filling pressures with moderate pulmonary hypertension
2. Low cardiac output/index
3. Left ventricular enlargement with severe global hypokinesis with visually estimated EF 15%
4. Normal coronary arteries
RECOMMENDATIONS: This patient is euvolemic with severe nonischemic cardiomyopathy. Maximally tolerated GDMT recommended. We will change furosemide from 40 mg IV twice daily to 80 mg p.o. every morning. We will resume Eliquis in AM. With QRS
duration 132 ms on twelve-lead ECG with consider ICD upgrade to allow biventricular pacing
Copy to: Schuyler Hernandez MD, Conrado Escalante MD ([place], [address]),
Tang Myles MD, [facility], [facility]
[2023-09-10] MEDS: PACERONE 400 MG PO ×2 (16:15→22:50)
--- NOTE | 2023-09-10 16:25 | PTCARENOTE ---
Rec'd pt at 1555 from the grass farm laborer via bed. Rec'd pt awake alert and oriented asking for something to drink and eat. Pt made aware of HOB restrictions and movement. Hob at 30'. Initally on arrival questioned whether pt has a sl L facial droop but
pts speech is clear. Denies any numbness and told me he felt fine-and to 'stop scaring him'. Now that he has been back in the unit for 30 min I don't see it. Tongue is midline. JURADO. Skin is wm and dry. R groin with 4x4 and tegaderm over R arterial
and venous access site. No swelling drainage or hematoma. + pulses. DP pulse is normal. PT pulse is weak to palp but easily audible with the doppler. Feet are sl cool to the touch but legs are warm. Respirs are unlabored. On 2l with sats of 98%.
Monitor SR. abd is soft. Pt aware he cannot get oob to void currently. Urinal at bedside. Amiodarone and Primacor gtts continue to infuse via R arm PICC. Site wnl. PO amiodarone given as ordered and will dc gtt at 1800 as ordered. Call chaudhry in
reach.
--- NOTE | 2023-09-10 18:33 | PTCARENOTE ---
Excellent appetite for dinner. No c/o nausea. Resting. States hes just tired. R groin site and pulse checks wnl. Amiodarone dc'd at 1810 per md order.
--- NOTE | 2023-09-10 19:03 | W.PN.UPDATE ---
Update Note
Progress Note Update
Reviewed patient status with Dr. Menezes, will transfer to IVU, transfer orders placed and RN updated.
[2023-09-10] MEDS: ATIVAN 0.25 MG PO (21:02)
--- NOTE | 2023-09-10 22:41 | PTCARENOTE ---
Pt downgraded to IVU, report called to IVU RN. Pt is aox3, PRN Ativan was given for anxiety. Milrinone gtt remains infusing, right groin site CDI. + pedal pulses.
[2023-09-10] MEDS: PRIMACOR 20 MG 100 IV (23:04)
--- NOTE | 2023-09-10 23:15 | PTCARENOTE ---
received pt from EMERGENCY RESPONSE TECHNICIANRODERICK Quintero into IVU rm [id number]. pt A&Ox4. MAEE. VSS. SR w/ 1st degree AVB on tele-monitor, HR 80s-90s. POX 96-99% on L NC. cath site stable. PIV intact. PICC line intact. milrinone gtt infusing. see flowsheet for details. no c/o
pain at time of assessment. frequent, dry cough noted. pt c/o 'scratchy throat.' covid test ordered by hospitalist. see worklist for complete nursing assessment, interventions, VS & I&Os.
--- NOTE | 2023-09-10 23:17 | W.PN.UPDATE ---
Update Note
Progress Note Update
Nurse contacted this provider and stated patient arrived from ICU with 'frequent, dry cough noted. Patient had c/o scratchy throat.' Requested Covid testing. Order placed.
[2023-09-11] VITALS (12 sets, daily range): BP systolic 89–138; BP diastolic 69–117; PULSE 88; BMI 27.7
[2023-09-11 00:07] LABS: COVID-19 Antigen Negative (Negative)
[2023-09-11 05:51] LABS: Hematocrit 43.1 % (39.0-52.0); Hemoglobin 14.6 g/dL (13.0-18.0); Mean Corp Hgb Conc. 33.9 g/dL (33.0-37.0); Mean Corpuscular Hgb 30.2 pg (27.0-31.0); Mean Platelet Volume 10.3 fL (7.4-10.4); Platelet Count 258 10^3/uL (130-400); Red Blood Cell Count 4.84 10^6/uL (4.70-6.10); White Blood Cell Count 10.1 10^3/uL (4.8-10.8)
[2023-09-11 06:11] LABS: ALT (SGPT) 65 U/L (0-50); AST (SGOT) 28 U/L (17-59); Albumin 3.7 g/dl (3.5-5.0); Alkaline Phosphatase 88 U/L (38-126); Blood Urea Nitrogen 27 mg/dl (9-20); Calcium 9.2 mg/dl (8.4-10.2); Carbon Dioxide 26 mmol/L (22-30); Chloride 100 mmol/L (98-107); Estimated Creatinine Clearance 71 ml/min; Glucose 96 mg/dl (70-99); Magnesium 2.2 mg/dl (1.6-2.3); Potassium 4.3 mmol/L (3.5-5.1); Sodium 132 mmol/L (135-145); Total Bilirubin 1.9 mg/dl (0.2-1.3); Total Protein 6.9 g/dl (6.3-8.2); eGFR > 60.00
[2023-09-11] MEDS: ELIQUIS 5 MG PO ×2 (07:10→19:54)
[2023-09-11] MEDS: FARXIGA 10 MG PO (07:11)
[2023-09-11] MEDS: PACERONE 400 MG PO ×3 (07:11→22:20)
[2023-09-11] MEDS: LASIX 80 MG PO (07:11)
[2023-09-11] MEDS: ALDACTONE 25 MG PO (07:11)
--- NOTE | 2023-09-11 08:21 | PTCARENOTE ---
Patient received this am from operations and maintenance technician RN. Patient resting in bed with no reports of discomfort. VS within patients overall parameters. Patient continues on Milrinone drip at 0.125mcg/kg/min. No reports of CP/PALP. Patient given AM meds and
ordered morning breakfast.
--- NOTE | 2023-09-11 08:49 | W.PN.CD ---
Today's Communication / Plan
-
-Transition to oral Lasix
-Will work to add back very low-dose lisinopril as well as low-dose beta-radu
- will try and wean milronone off over the weekend
Impression / Plan
-
Impression: 63M with severe ICM EF 15% admitted with HFrEF. Now with recurrent AF and some VT as well.
Plan
Acute hypoxic respiratory insufficiency, in the setting of acute heart failure - wean O2 as tolerated
ICM/HFrEF
- Reports last known EF ~20% and echo this admit with EF 10-20%
-Cardiac catheterization 09/10/2023 normal coronaries. Filling pressures are elevated with wedge 24 but patient likely runs high filling pressures at baseline. Low cardiac output. Index was less than 2. I explained the challenges in treating his
cardiomyopathy with severely reduced left ventricular function. Also discussed possible advanced heart failure assessment in the future. Note suggest that this had been discussed in the past. Patient does not recall.
-Sounds as if med compliance has been an issue in the past had missed doses of furosemide and Eliquis prior to admission.
- GDMT
- He is on carvedilol and milrinone
- continue MRA and SLGT2i (some insurance issues with this)
- MDT ICD - interrogated
-Trend daily weight, I/Os, and BMP with diuresis
-Transition to oral Lasix
-Will work to add back very low-dose lisinopril as well as low-dose beta-radu
- will try and wean milronone off over the weekend
VT
-Patient had V's T and an ICD shock on prior admission about a month ago some additional VT noted placed on amiodarone this admission.
-Amiodarone initiated for VT on 09/08/2023.
- amiodarone to suppress VT and A-fib. Patient now back in sinus rhythm.
Hypotension - improved.
off pressor and on milrinone
Atrial flutter, 2:1 and Paroxysmal atrial fibrillation
- Oral anticoagulation: Apixaban 5mg BID,-
-Patient converted to sinus rhythm in early childhood hours on 09/09/2023. Continue Eliquis, amiodarone and beta-radu.
Abnormal troponin, likely non ischemic myocardial injury in the setting of tachyarrhythmia
-Peak on arrival, 0.095
-Chest pain free
CAD, on apixaban, he is not on a statin, fasting lipid profile in am, will start statin based on LFTS
Medtronic ICD
Transaminitis, likely in the setting of congestion
Critically ill 35 minutes
Subjective: No CP or palps. Breathing comfortably at rest on 4 L nasal cannula.
TTE Apr 15: TDS, EF 15%, valves not well seen
09/06/23 09/08/23
Unknown 04:53
Hgb 13.3
Creatinine 1.2
Generic Name Dose Route Start Last Admin
Trade Name Freq PRN Reason Stop Dose Admin
Furosemide 40 mg 09/06/23 08:00 09/08/23 07:35
Furosemide 40 Mg (10 Mg/Ml) 4 Ml Vial IV 10/04/23 07:59 40 mg
BID AT 0800,1600 JANNA
Apixaban 5 mg 09/06/23 08:00 09/08/23 07:34
Apixaban (Eliquis) 5 Mg Tablet PO 10/04/23 07:59 5 mg
BID JANNA
Spironolactone 25 mg 09/06/23 08:00 09/08/23 07:34
Spironolactone 25 Mg Tablet PO 10/04/23 07:59 25 mg
DAILY JANNA
Carvedilol 12.5 mg 09/06/23 08:00 09/08/23 07:34
Carvedilol 12.5 Mg Tablet PO 10/04/23 07:59 12.5 mg
BID JANNA
Dapagliflozin 10 mg 09/07/23 08:00 09/08/23 07:34
Dapagliflozin (Farxiga) 10 Mg Tablet PO 10/05/23 07:59 10 mg
DAILY JANNA
Milrinone Lactate/Dextrose 20 mg in 100 mls @ 0 mls/hr 09/06/23 16:45 09/07/23 16:13
Primacor 20 Mg IV 100 mls
PER PROTOCOL JANNA
Protocol
Per Protocol
Norepinephrine Bitartrate 4 mg in 250 mls @ 0 mls/hr 09/06/23 12:00 09/06/23 18:23
Levophed IV 250 mls
PER PROTOCOL JANNA
Protocol
Per Protocol
Physical Exam
Vital Signs/Labs
Vital Signs
Temp Pulse Resp BP Pulse Ox
98.1 F 86 18 110/80 90
09/11/23 07:00 09/11/23 07:11 09/11/23 07:00 09/11/23 07:11 09/11/23 08:05
09/10/23 09/11/23 09/12/23
06:59 06:59 06:59
Actual Weight 90.6 kg
09/11/23 05:29
09/11/23 05:29
PT 19.4 Sec (11.4-14.6) H 09/06/23 Unknown
INR 1.66 09/06/23 Unknown
APTT 35.7 Sec (23.4-35.0) H 09/06/23 Unknown
Magnesium 2.2 mg/dl (1.6-2.3) 09/11/23 05:29
Triglycerides 103 mg/dl (10-149) 09/07/23 04:47
LDL Cholesterol, Calc 81 mg/dl 09/07/23 04:47
VLDL Cholesterol, Calc 20 mg/dl (0-30) 09/07/23 04:47
HDL Cholesterol 38 mg/dl 09/07/23 04:47
09/05/23
22:32
Hdx-A-Ljhpljkxzrb Pept [id number]
Physical Exam
Constitutional: No acute distress
EENT: Anicteric
Cardiovascular: Rhythm & rate is regular
Respiratory: Respiratory effort normal
GI: Soft
Neuro/Psych: Alert
Other: Skin
Data Reviewed
-
Date of Service: September 11, 2023
Medical Decision Making: Reviewed Test Results
EKG: Report Reviewed by me
Echo: Report Reviewed by me
X-Ray/CT/US/MRI/NUC/PET: Report Reviewed by me
Labs: Labs Reviewed by me
Total Time Spent with Patient (in minutes): 30
--- NOTE | 2023-09-11 09:30 | W.PN.HOSP.TC ---
Today's Communication/Plan
-
uptitrate lisinopril and wean milrinone if able
wean O2 if able
apprec cards
Assessment / Plan
Assessment / Plan
pt is a 63 year old male
Acute systolic CHF Exacerbation with hypotension--cardiogenic shock on milrinone and off levophed--cardiac output 3.1 with index 1.5 by cath--Acute on chronic CHF with depressed EF--Echo 09/06/23 showed severely reduced LV function with EF of 15 to
20% and hypokinetic right ventricle--cont IV lasix, IV milrinone drip, wean to off--lisinopril restarted at low dose with attempt to wean milrinone
acute hypoxemic resp insufficiency--due to CHF--on 2L pulse ox 90%--may need home O2 (did not wear prior to admission)--wean O2 to off as able
New atrial flutter--paroxysmal--History of paroxysmal atrial fibrillation---Cardizem discontinued due to hypotension and more shortness of breath--now on metoprolol, Eliquis--apprec cards
Non sustained ventricular tachycardia--confirmed by ICD interrogation-- amiodarone drip, transition to oral per cards--Hypotension with amnio drip noted--off levophed
Hypotension - suspect possible combination of amio and cardiogenic shock - off vasopressor. No focal symptoms and signs of infection
Anxiety--xanax prn changed to ativan as worked better
Transaminitis - Suspect congestive hepatopathy-improving--Hyperbilirubinemia which is in direct-suspect concurrent Gilbert's. Now normalized
DVT PPX - on apixaban
Code status--Full Code.
Anticipated Discharge: > 48 hours
Subjective/Interval History
-
Date of Service: September 11, 2023
pt without c/o
Objective Data
-
Labs:
Laboratory Results
09/11/23
05:29
WBC 10.1
Hgb 14.6
Hct 43.1
Plt Count 258
Sodium 132 L
Potassium 4.3
Chloride 100
Carbon Dioxide 26
BUN 27 H
Creatinine 1.1
Glucose 96
Calcium 9.2
Total Bilirubin 1.9 H
AST 28
ALT 65 H
Alkaline Phosphatase 88
Vital Signs:
max temp for 24 hours
09/11/23
07:00
Temp 98.1 F
Vital Signs
Temp Pulse Resp BP Pulse Ox
98.1 F 86 18 110/80 90
09/11/23 07:00 09/11/23 07:11 09/11/23 07:00 09/11/23 07:11 09/11/23 08:05
I&O
09/10/23 09/11/23 09/12/23
06:59 06:59 06:59
Intake Total 2030.3 1709.7 / 1709.7
Output Total 4150 / 4150 3300 / 3300
Balance -2138.9 / -2118.7 -1590.3 / -1590.3
Review of Systems
-
All other systems: Reviewed and negative
Physical Exam
-
General: Well Developed, Well Nourished and No Apparent Distress
HEENT: Normocephalic, Atraumatic and Oxygen
Respiratory: Clear to Auscultation; Negative Wheezes or Rhonchi
Cardiac: Regular Rhythm, S1/S2 and Murmur
GI: Soft, Nontender, Nondistended and Normal Bowel Sounds
Musculoskeletal: No Clubbing, No Cyanosis and No Edema
Skin: Warm
Neuro: Awake
[2023-09-11] MEDS: ZESTRIL 1.25 MG PO (10:05)
--- NOTE | 2023-09-11 16:09 | PTCARENOTE ---
Assumed care of the patient. He is aaox3. His vital are stable, 97% on RA. NSR with a 1st degree AVB is noted on the monitor. He has no complaints of pain, dizziness, or SOB. Milrinone gtt is running at 3.3 ml/hr.
[2023-09-11] MEDS: PRIMACOR 20 MG 100 IV (19:54)
[2023-09-11] MEDS: ATIVAN 0.25 MG PO (21:01)
--- NOTE | 2023-09-11 21:23 | PTCARENOTE ---
AOx3 and pleasant. Milrinone gtt infusing at 3.3 ml/hr through R PICC. Assessment noted as documented. Pt offers no c/o at this time. Currently in bed; call richa w/in reach.
[2023-09-12] VITALS (10 sets, daily range): BP systolic 93–116; BP diastolic 72–90; PULSE 83; BMI 27.7
[2023-09-12 05:18] LABS: Hemoglobin 15.2 g/dL (13.0-18.0); Mean Corp Hgb Conc. 33.8 g/dL (33.0-37.0); Mean Corpuscular Hgb 30.2 pg (27.0-31.0); Mean Corpuscular Volume 89.3 fL (80.0-94.0); Platelet Count 282 10^3/uL (130-400); Red Blood Cell Count 5.04 10^6/uL (4.70-6.10); Red Cell Dist. Width 14.1 % (11.5-14.5); White Blood Cell Count 10.2 10^3/uL (4.8-10.8)
[2023-09-12 05:43] LABS: ALT (SGPT) 53 U/L (0-50); AST (SGOT) 26 U/L (17-59); Albumin 3.9 g/dl (3.5-5.0); Alkaline Phosphatase 88 U/L (38-126); Blood Urea Nitrogen 30 mg/dl (9-20); Calcium 9.6 mg/dl (8.4-10.2); Carbon Dioxide 28 mmol/L (22-30); Chloride 101 mmol/L (98-107); Estimated Creatinine Clearance 65 ml/min; Glucose 100 mg/dl (70-99); Magnesium 2.3 mg/dl (1.6-2.3); Potassium 4.6 mmol/L (3.5-5.1); Sodium 132 mmol/L (135-145); Total Bilirubin 1.4 mg/dl (0.2-1.3); Total Protein 7.2 g/dl (6.3-8.2); eGFR > 60.00
[2023-09-12] MEDS: FARXIGA 10 MG PO (08:31)
[2023-09-12] MEDS: ALDACTONE 25 MG PO (08:31)
[2023-09-12] MEDS: PACERONE 400 MG PO ×3 (08:31→22:18)
[2023-09-12] MEDS: ELIQUIS 5 MG PO ×2 (08:31→19:41)
[2023-09-12] MEDS: LASIX 80 MG PO (08:31)
[2023-09-12] MEDS: ZESTRIL 1.25 MG PO (08:31)
[2023-09-12] MEDS: FLUSH (NSS) 2 FLUSH IV (08:32)
--- NOTE | 2023-09-12 09:05 | W.PN.HOSP.TC ---
Today's Communication/Plan
-
wean milrinone drip
d/c planning as per cards
Assessment / Plan
Assessment / Plan
pt is a 63 year old male
Acute systolic CHF Exacerbation with hypotension--cardiogenic shock on milrinone and off levophed--cardiac output 3.1 with index 1.5 by cath--Echo 09/06/23 showed severely reduced LV function with EF of 15 to 20% and hypokinetic right ventricle--cont
IV lasix, IV milrinone drip, wean to off--lisinopril restarted at low dose with attempt to wean milrinone--cardiology adjusting
acute hypoxemic resp insufficiency--due to CHF--off o2
New atrial flutter--paroxysmal--History of paroxysmal atrial fibrillation---Cardizem discontinued due to hypotension and more shortness of breath--now on metoprolol, Eliquis--apprec cards
Non sustained ventricular tachycardia--confirmed by ICD interrogation-- amiodarone drip, transition to oral per cards--Hypotension with amnio drip noted--off levophed
Hypotension - suspect possible combination of amio and cardiogenic shock - off vasopressor. No focal symptoms and signs of infection
Anxiety--xanax prn changed to ativan as worked better
Transaminitis - Suspect congestive hepatopathy-improving--Hyperbilirubinemia which is in direct-suspect concurrent Gilbert's. Now normalized
DVT PPX - on apixaban
Code status--Full Code.
Anticipated Discharge: 24 - 48 hours
Subjective/Interval History
-
Date of Service: September 12, 2023
pt off O2, breathing better
Objective Data
-
Labs:
Laboratory Results
09/12/23
04:50
WBC 10.2
Hgb 15.2
Hct 45.0
Plt Count 282
Sodium 132 L
Potassium 4.6
Chloride 101
Carbon Dioxide 28
BUN 30 H
Creatinine 1.2
Glucose 100 H
Calcium 9.6
Total Bilirubin 1.4 H
AST 26
ALT 53 H
Alkaline Phosphatase 88
Vital Signs:
max temp for 24 hours
09/05/23
22:35 09/11/23
22:22 09/12/23
04:41
Temp 98.2 F
Actual Weight 95.6 kg 87.5 kg
Vital Signs
Temp Pulse Resp BP Pulse Ox
97.9 F 77 18 101/73 97
09/12/23 08:30 09/12/23 08:00 09/12/23 08:30 09/12/23 07:42 09/12/23 08:30
I&O
09/11/23 09/12/23 09/13/23
06:59 06:59 06:59
Intake Total 1709.7 / 1709.7
Output Total 3300 / 3300 1175 / 1175
Balance -1590.3 / -1590.3 -1175 / -1175
Review of Systems
-
All other systems: Reviewed and negative
Physical Exam
-
General: Well Developed, Well Nourished and No Apparent Distress
HEENT: Normocephalic and Atraumatic; Negative Oxygen
Respiratory: Clear to Auscultation; Negative Wheezes or Rhonchi
Cardiac: Regular Rhythm, S1/S2 and Murmur
GI: Soft, Nontender, Nondistended and Normal Bowel Sounds
Musculoskeletal: No Clubbing, No Cyanosis and No Edema
Neuro: Awake and Alert
Psych: Calm
--- NOTE | 2023-09-12 09:26 | W.PN.CD ---
Today's Communication / Plan
-
Slow improvement. Now weaned off O2.
Milrinone dose cut in half. With plan to discontinue in a.m. tomorrow.
Continue with low-dose lisinopril and Toprol.
Impression / Plan
-
Impression: 63M with severe ICM EF 15% admitted with HFrEF. Now with recurrent AF and some VT as well.
Plan
Acute hypoxic respiratory insufficiency, in the setting of acute heart failure - wean O2 as tolerated
ICM/HFrEF
- Reports last known EF ~20% and echo this admit with EF 10-20%
-Cardiac catheterization 09/10/2023 normal coronaries. Filling pressures are elevated with wedge 24 but patient likely runs high filling pressures at baseline. Low cardiac output. Index was less than 2. I explained the challenges in treating his
cardiomyopathy with severely reduced left ventricular function. Also discussed possible advanced heart failure assessment in the future. Note suggest that this had been discussed in the past. Patient does not recall.
-Sounds as if med compliance has been an issue in the past had missed doses of furosemide and Eliquis prior to admission.
- GDMT
- He is on carvedilol and milrinone
- continue MRA and SLGT2i (some insurance issues with this)
- MDT ICD - interrogated
-Trend daily weight, I/Os, and BMP with diuresis
-Transition to oral Lasix
-Will work to add back very low-dose lisinopril as well as low-dose beta-radu
- will try and wean milronone off over the weekend
VT
-Patient had V's T and an ICD shock on prior admission about a month ago some additional VT noted placed on amiodarone this admission.
-Amiodarone initiated for VT on 09/08/2023.
- amiodarone to suppress VT and A-fib. Patient now back in sinus rhythm.
Hypotension - improved.
off pressor and on milrinone
Atrial flutter, 2:1 and Paroxysmal atrial fibrillation
- Oral anticoagulation: Apixaban 5mg BID,-
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 Continue Eliquis, amiodarone and beta-radu.
Abnormal troponin, likely non ischemic myocardial injury in the setting of tachyarrhythmia
-Peak on arrival, 0.095
-Chest pain free
CAD, on apixaban, he is not on a statin, fasting lipid profile in am, will start statin based on LFTS
Medtronic ICD
Transaminitis, likely in the setting of congestion
Critically ill 35 minutes
Subjective: No CP or palps. Breathing comfortably at rest on 4 L nasal cannula.
TTE Apr 15: TDS, EF 15%, valves not well seen
09/06/23 09/08/23
Unknown 04:53
Hgb 13.3
Creatinine 1.2
Generic Name Dose Route Start Last Admin
Trade Name Freq PRN Reason Stop Dose Admin
Furosemide 40 mg 09/06/23 08:00 09/08/23 07:35
Furosemide 40 Mg (10 Mg/Ml) 4 Ml Vial IV 10/04/23 07:59 40 mg
BID AT 0800,1600 JANNA
Apixaban 5 mg 09/06/23 08:00 09/08/23 07:34
Apixaban (Eliquis) 5 Mg Tablet PO 10/04/23 07:59 5 mg
BID JANNA
Spironolactone 25 mg 09/06/23 08:00 09/08/23 07:34
Spironolactone 25 Mg Tablet PO 10/04/23 07:59 25 mg
DAILY JANNA
Carvedilol 12.5 mg 09/06/23 08:00 09/08/23 07:34
Carvedilol 12.5 Mg Tablet PO 10/04/23 07:59 12.5 mg
BID JANNA
Dapagliflozin 10 mg 09/07/23 08:00 09/08/23 07:34
Dapagliflozin (Farxiga) 10 Mg Tablet PO 10/05/23 07:59 10 mg
DAILY JANNA
Milrinone Lactate/Dextrose 20 mg in 100 mls @ 0 mls/hr 09/06/23 16:45 09/07/23 16:13
Primacor 20 Mg IV 100 mls
PER PROTOCOL JANNA
Protocol
Per Protocol
Norepinephrine Bitartrate 4 mg in 250 mls @ 0 mls/hr 09/06/23 12:00 09/06/23 18:23
Levophed IV 250 mls
PER PROTOCOL JANNA
Protocol
Per Protocol
Physical Exam
Vital Signs/Labs
Vital Signs
Temp Pulse Resp BP Pulse Ox
97.9 F 77 18 101/73 97
09/12/23 08:30 09/12/23 08:00 09/12/23 08:30 09/12/23 07:42 09/12/23 08:30
09/11/23 09/12/23 09/13/23
06:59 06:59 06:59
Actual Weight 87.5 kg
09/12/23 04:50
09/12/23 04:50
PT 19.4 Sec (11.4-14.6) H 09/06/23 Unknown
INR 1.66 09/06/23 Unknown
APTT 35.7 Sec (23.4-35.0) H 09/06/23 Unknown
Magnesium 2.3 mg/dl (1.6-2.3) 09/12/23 04:50
Triglycerides 103 mg/dl (10-149) 09/07/23 04:47
LDL Cholesterol, Calc 81 mg/dl 09/07/23 04:47
VLDL Cholesterol, Calc 20 mg/dl (0-30) 09/07/23 04:47
HDL Cholesterol 38 mg/dl 09/07/23 04:47
09/05/23
22:32
Hdo-D-Akiuwboybln Pept [id number]
Physical Exam
Constitutional: No acute distress
EENT: Anicteric
Cardiovascular: Rhythm & rate is regular
Respiratory: Respiratory effort normal
GI: Soft
Neuro/Psych: Alert
Data Reviewed
-
Date of Service: September 12, 2023
Medical Decision Making: Reviewed Test Results
Echo: Report Reviewed by me
X-Ray/CT/US/MRI/NUC/PET: Report Reviewed by me
Medical Tests (PFT, Pathology etc): Report Reviewed by me
Labs: Labs Reviewed by me
--- NOTE | 2023-09-12 09:41 | PTCARENOTE ---
Milrinone gtt decreased to 0.062 mcg/kg/min (1.7 ml /hr) as per order.
--- NOTE | 2023-09-12 18:00 | PTCARENOTE ---
Addendum entered by Radha Chery RN 09/12/23 18:09:
The patient has not had a BM since 09/08 according to the patient. He has no discomfort nor feels constipated.
Original Note:
The patient has been stable all shift. He has been ambulatory in his room throughout the day. NSR is noted on the monitor. He has had no complaints of SOB or pain. Milrinone gtt continues to run at the decreased rate of 0.62 mcg/kg/min as per order.
[2023-09-12] MEDS: SENOKOT-S 1 TABLET PO (20:38)
[2023-09-12] MEDS: ATIVAN 0.25 MG PO (22:21)
--- NOTE | 2023-09-12 22:35 | PTCARENOTE ---
Pt rec'd at change of shift awake,alert watching a movie. Sinus with first degree block on telemetry. Milrinone drip continued via FABIOLA dual lumen picc with DDI, secondary port flushed with saline. Pt reports no BM since . House BUSINESS MANAGEMENT PROFESSOR notified
Senokot order obtained and given. At HS pt stated he needed something to help him sleep, Ativan given.
[2023-09-13] VITALS (9 sets, daily range): BP systolic 86–106; BP diastolic 64–79; PULSE 88; BMI 27.6
[2023-09-13] MEDS: MELATONIN 3 MG PO ×2 (00:22→22:04)
--- NOTE | 2023-09-13 00:25 | PTCARENOTE ---
Pt called nursing to room stating he couldn't sleep. INTERACTIVE MEDIA MARKETING DIRECTOR contacted Melatonin ordered and given.
[2023-09-13 05:35] LABS: Hematocrit 45.1 % (39.0-52.0); Hemoglobin 15.3 g/dL (13.0-18.0); Mean Corp Hgb Conc. 33.9 g/dL (33.0-37.0); Mean Corpuscular Hgb 30.4 pg (27.0-31.0); Mean Corpuscular Volume 89.7 fL (80.0-94.0); Mean Platelet Volume 9.9 fL (7.4-10.4); Platelet Count 285 10^3/uL (130-400); Red Blood Cell Count 5.03 10^6/uL (4.70-6.10); Red Cell Dist. Width 14.2 % (11.5-14.5)
[2023-09-13 06:05] LABS: Blood Urea Nitrogen 31 mg/dl (9-20); Calcium 9.5 mg/dl (8.4-10.2); Carbon Dioxide 27 mmol/L (22-30); Chloride 102 mmol/L (98-107); Estimated Creatinine Clearance 65 ml/min; Glucose 98 mg/dl (70-99); Magnesium 2.4 mg/dl (1.6-2.3); Potassium 4.6 mmol/L (3.5-5.1); Sodium 133 mmol/L (135-145); eGFR > 60.00
--- NOTE | 2023-09-13 08:33 | W.PN.CD ---
Addendum entered and electronically signed by Schuyler Hernandez MD 09/14/23 07:50:
on 09/13/23 I reviewed information regarding his hospitalization with his primary emergency telecommunications dispatcher in [place], [place] - Dr Conrado Escalante - Fax [phone]
Original Note:
Today's Communication / Plan
-
Patient feels well. Milrinone dose had been cut in half.
Milrinone has been discontinued this morning. Would observe 24 hours off of milrinone.
If patient continues to feel well off milrinone then would continue consider discharge tomorrow.
Blood pressure limiting GDMT
Patient remains on amiodarone currently at 400 mg twice daily.
At discharge. would place on 200 mg twice daily at discharge for 3 weeks and then reduce to 200 mg daily
Note I have placed a call to his primary emergency telecommunications dispatcher at [facility] Dr. Conrado Esaclante and I am awaiting a callback.
Impression / Plan
-
Impression: 63M with severe ICM EF 15% admitted with HFrEF. Now with recurrent AF and some VT as well.
Plan
Acute hypoxic respiratory insufficiency, in the setting of acute heart failure - wean O2 as tolerated
ICM/HFrEF
- Reports last known EF ~20% and echo this admit with EF 10-20%
-Cardiac catheterization 09/10/2023 normal coronaries. Filling pressures are elevated with wedge 24 but patient likely runs high filling pressures at baseline. Low cardiac output. Index was less than 2. I explained the challenges in treating his
cardiomyopathy with severely reduced left ventricular function. Also discussed possible advanced heart failure assessment in the future. Note suggest that this had been discussed in the past. Patient does not recall.
-Sounds as if med compliance has been an issue in the past had missed doses of furosemide and Eliquis prior to admission.
- GDMT -limited by BP. Appears he had been on carvedilol and lisinopril
-Now on very low-dose lisinopril and amiodarone. Would add back low-dose beta-radu Toprol-XL 12.5 mg daily when able.
- continue MRA and SLGT2i (some insurance issues with this)
- MDT ICD - interrogated
-Trend daily weight, I/Os, and BMP with diuresis
-Transition to oral Lasix
-Will work to add back very low-dose lisinopril as well as low-dose beta-radu
-Stop milrinone and observe today.
VT
-Patient had V's T and an ICD shock on prior admission about a month ago some additional VT noted placed on amiodarone this admission.
-Amiodarone initiated for VT on 09/08/2023.
- amiodarone to suppress VT and A-fib. Patient now back in sinus rhythm.
Hypotension - improved.
off pressor and on milrinone
Atrial flutter, 2:1 and Paroxysmal atrial fibrillation
- Oral anticoagulation: Apixaban 5mg BID,-
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 Continue Eliquis, amiodarone and beta-radu.
Abnormal troponin, likely non ischemic myocardial injury in the setting of tachyarrhythmia
-Peak on arrival, 0.095
-Chest pain free
CAD, on apixaban, he is not on a statin, fasting lipid profile in am, will start statin based on LFTS
Medtronic ICD
Transaminitis, likely in the setting of congestion
Critically ill 35 minutes
Subjective: No CP or palps. Breathing comfortably at rest on 4 L nasal cannula.
TTE Apr 15: TDS, EF 15%, valves not well seen
09/06/23 09/08/23
Unknown 04:53
Hgb 13.3
Creatinine 1.2
Generic Name Dose Route Start Last Admin
Trade Name Freq PRN Reason Stop Dose Admin
Furosemide 40 mg 09/06/23 08:00 09/08/23 07:35
Furosemide 40 Mg (10 Mg/Ml) 4 Ml Vial IV 05/13/24 07:59 40 mg
BID AT 0800,1600 JANNA
Apixaban 5 mg 09/06/23 08:00 09/08/23 07:34
Apixaban (Eliquis) 5 Mg Tablet PO 10/04/23 07:59 5 mg
BID JANNA
Spironolactone 25 mg 09/06/23 08:00 09/08/23 07:34
Spironolactone 25 Mg Tablet PO 10/04/23 07:59 25 mg
DAILY JANNA
Carvedilol 12.5 mg 09/06/23 08:00 09/08/23 07:34
Carvedilol 12.5 Mg Tablet PO 10/04/23 07:59 12.5 mg
BID JANNA
Dapagliflozin 10 mg 09/07/23 08:00 09/08/23 07:34
Dapagliflozin (Farxiga) 10 Mg Tablet PO 10/05/23 07:59 10 mg
DAILY JANNA
Milrinone Lactate/Dextrose 20 mg in 100 mls @ 0 mls/hr 09/06/23 16:45 09/07/23 16:13
Primacor 20 Mg IV 100 mls
PER PROTOCOL JANNA
Protocol
Per Protocol
Norepinephrine Bitartrate 4 mg in 250 mls @ 0 mls/hr 09/06/23 12:00 09/06/23 18:23
Levophed IV 250 mls
PER PROTOCOL JANNA
Protocol
Per Protocol
Physical Exam
Vital Signs/Labs
Vital Signs
Temp Pulse Resp BP Pulse Ox
97.8 F 80 20 93/77 95
09/13/23 07:18 09/13/23 05:19 09/13/23 07:18 09/13/23 05:19 09/13/23 07:18
09/12/23 09/13/23 09/14/23
06:59 06:59 06:59
Actual Weight 87.5 kg
09/13/23 05:23
09/13/23 05:23
PT 19.4 Sec (11.4-14.6) H 09/06/23 Unknown
INR 1.66 09/06/23 Unknown
APTT 35.7 Sec (23.4-35.0) H 09/06/23 Unknown
Magnesium 2.4 mg/dl (1.6-2.3) H 09/13/23 05:23
Triglycerides 103 mg/dl (10-149) 09/07/23 04:47
LDL Cholesterol, Calc 81 mg/dl 09/07/23 04:47
VLDL Cholesterol, Calc 20 mg/dl (0-30) 09/07/23 04:47
HDL Cholesterol 38 mg/dl 09/07/23 04:47
09/05/23
22:32
Rhc-S-Cvxkqffskzy Pept [id number]
Physical Exam
EENT: Anicteric
Cardiovascular: Rhythm & rate is regular
Respiratory: Respiratory effort normal
GI: Soft and Non tender
Neuro/Psych: Alert and AO x 3
Data Reviewed
-
Date of Service: September 13, 2023
Medical Decision Making: Reviewed Test Results
EKG: Report Reviewed by me
Medical Tests (PFT, Pathology etc): Report Reviewed by me
Labs: Labs Reviewed by me
[2023-09-13] MEDS: FARXIGA 10 MG PO (08:55)
[2023-09-13] MEDS: LASIX 80 MG PO (08:55)
[2023-09-13] MEDS: ZESTRIL 1.25 MG PO (08:55)
[2023-09-13] MEDS: ALDACTONE 25 MG PO (08:55)
[2023-09-13] MEDS: ELIQUIS 5 MG PO ×2 (08:56→20:18)
[2023-09-13] MEDS: PACERONE PO (08:56)
[2023-09-13] MEDS: PACERONE 400 MG PO ×2 (08:56→20:18)
--- NOTE | 2023-09-13 09:05 | W.PN.HOSP.TC ---
Today's Communication/Plan
-
if well in AM, can d/c
observe today off milrinone
Assessment / Plan
Assessment / Plan
pt is a 63 year old male
Acute systolic CHF Exacerbation with hypotension--cardiogenic shock on milrinone and off levophed--cardiac output 3.1 with index 1.5 by cath--Echo 09/06/23 showed severely reduced LV function with EF of 15 to 20% and hypokinetic right ventricle--cont
IV lasix, IV milrinone drip now off, wean to off--lisinopril restarted at low dose with uptitrating
acute hypoxemic resp insufficiency--due to CHF--off O2
New atrial flutter--paroxysmal--History of paroxysmal atrial fibrillation---Cardizem discontinued due to hypotension and more shortness of breath--now on metoprolol, Eliquis--apprec cards
Non sustained ventricular tachycardia--confirmed by ICD interrogation-- amiodarone drip, transition to oral per cards--Hypotension with amnio drip noted--off levophed
Hypotension - suspect possible combination of amio and cardiogenic shock - off vasopressor. No focal symptoms and signs of infection
Anxiety--xanax prn changed to ativan as worked better
Transaminitis - Suspect congestive hepatopathy-improving--Hyperbilirubinemia which is in direct-suspect concurrent Gilbert's. Now normalized
DVT PPX - on apixaban
Code status--Full Code.
Anticipated Discharge: Within 24 hours
Subjective/Interval History
-
Date of Service: September 13, 2023
pt feels well--milrinone stopped today
Objective Data
-
Labs:
Laboratory Results
09/13/23
05:23
WBC 10.0
Hgb 15.3
Hct 45.1
Plt Count 285
Sodium 133 L
Potassium 4.6
Chloride 102
Carbon Dioxide 27
BUN 31 H
Creatinine 1.2
Glucose 98
Calcium 9.5
Vital Signs:
max temp for 24 hours
09/13/23
07:18
Temp 97.8 F
Vital Signs
Temp Pulse Resp BP Pulse Ox
97.8 F 82 20 103/79 95
09/13/23 07:18 09/13/23 08:55 09/13/23 07:18 09/13/23 08:55 09/13/23 07:18
I&O
09/12/23 09/13/23 09/14/23
06:59 06:59 06:59
Intake Total 1204 / 1204
Output Total 1175 / 1175 1275 / 1275
Balance -1175 / -1175 -71 / -71
Review of Systems
-
All other systems: Reviewed and negative
Physical Exam
-
General: Well Developed, Well Nourished and No Apparent Distress
HEENT: Normocephalic and Atraumatic; Negative Oxygen
Respiratory: Clear to Auscultation; Negative Wheezes, Rales, Rhonchi or Crackles
Cardiac: Regular Rhythm and S1/S2; Negative Murmur
GI: Soft, Nontender, Nondistended and Normal Bowel Sounds
Musculoskeletal: No Clubbing, No Cyanosis and No Edema
Neuro: Awake
--- NOTE | 2023-09-13 12:45 | CM ---
Chart reviewed. Patient is independent of ADLS, [place] and [place] a house in [place]. Patient will be returning to his home in [place], 2STH, 1 YG, 0 DME. Patient currently with no discharge needs. CM to follow
--- NOTE | 2023-09-13 21:21 | PTCARENOTE ---
Pt rec'd at shift change awake,alert lying in bed. Pt stated he was more mobile today ambulating in room and getting oob for meals. Sinus on telemetry. No cough per pt; lungs clear. Double lumen PICC line FABIOLA flushed with good blood return.
--- NOTE | 2023-09-13 22:41 | PTCARENOTE ---
Pt requested melatonin to sleep. dose given. Pt also given headphones for tv per pt request
[2023-09-14] MEDS: ATIVAN 0.25 MG PO (00:39)
[2023-09-14 06:00] VITALS: BMI 27.5
[2023-09-14 06:04] VITALS: BP 95/73
[2023-09-14 07:00] LABS: Blood Urea Nitrogen 35 mg/dl (9-20); Calcium 9.5 mg/dl (8.4-10.2); Carbon Dioxide 26 mmol/L (22-30); Chloride 103 mmol/L (98-107); Estimated Creatinine Clearance 65 ml/min; Glucose 99 mg/dl (70-99); Potassium 4.5 mmol/L (3.5-5.1); Sodium 134 mmol/L (135-145); eGFR > 60.00
[2023-09-14 07:38] VITALS: BP 101/80
--- NOTE | 2023-09-14 08:25 | W.PN.CD ---
Today's Communication / Plan
-
-Continue current doses of spironolactone, Farxiga, metoprolol succinate, furosemide, and lisinopril.
-Continue amiodarone 200 mg twice daily at discharge for 3 weeks and then reduce to 200 mg daily.
-Continue Eliquis.
-Aortic stenosis could not be excluded on echocardiogram 09/06/2023; repeat echocardiogram ordered today to reassess prior to discharge.
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
Impression / Plan
-
Impression: 63M with severe ICM EF 15% admitted with HFrEF. Now with recurrent AF and some VT as well.
Plan
Acute hypoxic respiratory insufficiency, in the setting of acute heart failure - wean O2 as tolerated
ICM/HFrEF
- Reports last known EF ~20% and echo this admit with EF 10-20%
-Cardiac catheterization 09/10/2023 normal coronaries. Filling pressures are elevated with wedge 24 but patient likely runs high filling pressures at baseline. Low cardiac output. Index was less than 2. I explained the challenges in treating his
cardiomyopathy with severely reduced left ventricular function. Also discussed possible advanced heart failure assessment in the future. Note suggest that this had been discussed in the past. Patient does not recall.
-Sounds as if med compliance has been an issue in the past had missed doses of furosemide and Eliquis prior to admission.
- GDMT -limited by BP.
-Now off of milrinone; appears to be clinically stable.
-Continue current doses of spironolactone, Farxiga, metoprolol succinate, furosemide, and lisinopril.
VT
-Patient had V's T and an ICD shock on prior admission about a month ago some additional VT noted placed on amiodarone this admission.
-Amiodarone initiated for VT on 09/08/2023.
-Amiodarone to suppress VT and A-fib. Patient now back in sinus rhythm.
-Continue amiodarone 200 mg twice daily at discharge for 3 weeks and then reduce to 200 mg daily.
-Continue Eliquis.
Atrial flutter, 2:1 and Paroxysmal atrial fibrillation
- Oral anticoagulation: Apixaban 5mg BID,-
-Patient converted to sinus rhythm in hardwood floor layer hours on 09/09/2023. Continue Eliquis, amiodarone and beta-radu.
Abnormal troponin, likely non ischemic myocardial injury in the setting of tachyarrhythmia
-Peak on arrival, 0.095
-Chest pain free
Aortic stenosis -could not be excluded on echocardiogram 09/06/2023; repeat echocardiogram ordered today to reassess prior to discharge.
CAD- stable.
[employer] ICD- stable.
Transaminitis, likely in the setting of congestion
Subjective:
No major events overnight. No cardiac complaints this a.m.
TTE Aug 15: TDS, EF 15%, valves not well seen
09/06/23 09/08/23
Unknown 04:53
Hgb 13.3
Creatinine 1.2
Generic Name Dose Route Start Last Admin
Trade Name Freq PRN Reason Stop Dose Admin
Furosemide 40 mg 09/06/23 08:00 09/08/23 07:35
Furosemide 40 Mg (10 Mg/Ml) 4 Ml Vial IV 10/04/23 07:59 40 mg
BID AT 0800,1600 JANNA
Apixaban 5 mg 09/06/23 08:00 09/08/23 07:34
Apixaban (Eliquis) 5 Mg Tablet PO 10/04/23 07:59 5 mg
BID JANNA
Spironolactone 25 mg 09/06/23 08:00 09/08/23 07:34
Spironolactone 25 Mg Tablet PO 10/04/23 07:59 25 mg
DAILY JANNA
Carvedilol 12.5 mg 09/06/23 08:00 09/08/23 07:34
Carvedilol 12.5 Mg Tablet PO 10/04/23 07:59 12.5 mg
BID JANNA
Dapagliflozin 10 mg 09/07/23 08:00 09/08/23 07:34
Dapagliflozin (Farxiga) 10 Mg Tablet PO 10/05/23 07:59 10 mg
DAILY JANNA
Milrinone Lactate/Dextrose 20 mg in 100 mls @ 0 mls/hr 09/06/23 16:45 09/07/23 16:13
Primacor 20 Mg IV 100 mls
PER PROTOCOL JANNA
Protocol
Per Protocol
Norepinephrine Bitartrate 4 mg in 250 mls @ 0 mls/hr 09/06/23 12:00 09/06/23 18:23
Levophed IV 250 mls
PER PROTOCOL JANNA
Protocol
Per Protocol
Physical Exam
Vital Signs/Labs
Vital Signs
Temp Pulse Resp BP Pulse Ox
97.5 F 80 18 101/80 97
09/14/23 07:38 09/14/23 07:45 09/14/23 07:38 09/14/23 07:38 09/14/23 07:38
09/13/23 09/14/23 09/15/23
06:59 06:59 06:59
Actual Weight 87.2 kg
09/13/23 05:23
09/14/23 06:03
PT 19.4 Sec (11.4-14.6) H 09/06/23 Unknown
INR 1.66 09/06/23 Unknown
APTT 35.7 Sec (23.4-35.0) H 09/06/23 Unknown
Magnesium 2.4 mg/dl (1.6-2.3) H 09/13/23 05:23
Triglycerides 103 mg/dl (10-149) 09/07/23 04:47
LDL Cholesterol, Calc 81 mg/dl 09/07/23 04:47
VLDL Cholesterol, Calc 20 mg/dl (0-30) 09/07/23 04:47
HDL Cholesterol 38 mg/dl 09/07/23 04:47
09/05/23
22:32
[id number] Pept [id number]
Physical Exam
Constitutional: No acute distress and Comfortable
EENT: Anicteric
Cardiovascular: Rhythm & rate is regular, Pedal edema is absent, Systolic murmur absent and S1S2 is normal
Respiratory: Respiratory effort normal and Lungs clear to auscul.
GI: Soft
Neuro/Psych: AO x 3
Other: Skin (Warm, dry, intact)
Data Reviewed
-
Date of Service: September 14, 2023
EKG: Tracing Personally Visualized and interpreted (Telemetry: Sinus rhythm)
Echo: Report Reviewed by me (EF 15-20%)
Medical Tests (PFT, Pathology etc): Discussed with Patient
Labs: Labs Reviewed by me
[2023-09-14] MEDS: PACERONE 400 MG PO (08:51)
[2023-09-14] MEDS: FARXIGA 10 MG PO (08:51)
[2023-09-14] MEDS: LASIX 80 MG PO (08:51)
[2023-09-14] MEDS: ZESTRIL 1.25 MG PO (08:51)
[2023-09-14] MEDS: ALDACTONE 25 MG PO (08:51)
[2023-09-14] MEDS: ELIQUIS 5 MG PO (08:51)
--- NOTE | 2023-09-14 09:30 | W.PN.HOSP.TC ---
Today's Communication/Plan
-
repeat ECHO prior to d/c
Assessment / Plan
Assessment / Plan
pt is a 63 year old male
Acute systolic CHF Exacerbation with hypotension--cardiogenic shock on milrinone and off levophed--cardiac output 3.1 with index 1.5 by cath--Echo 09/06/23 showed severely reduced LV function with EF of 15 to 20% and hypokinetic right ventricle--cont
IV lasix, IV milrinone drip now off, wean to off--lisinopril restarted at low dose with uptitrating--repeat ECHO prior to d/c per cards
acute hypoxemic resp insufficiency--due to CHF--off O2
New atrial flutter--paroxysmal--History of paroxysmal atrial fibrillation---Cardizem discontinued due to hypotension and more shortness of breath--now on metoprolol, Eliquis--apprec cards
Non sustained ventricular tachycardia--confirmed by ICD interrogation-- amiodarone drip, transition to oral per cards--Hypotension with amnio drip noted--off levophed
Hypotension - suspect possible combination of amio and cardiogenic shock - off vasopressor. No focal symptoms and signs of infection
Anxiety--xanax prn changed to ativan as worked better
Transaminitis - Suspect congestive hepatopathy-improving--Hyperbilirubinemia which is in direct-suspect concurrent Gilbert's. Now normalized
DVT PPX - on apixaban
Code status--Full Code.
Anticipated Discharge: Today
Subjective/Interval History
-
Date of Service: September 14, 2023
pt looking to go home
Objective Data
-
Labs:
Laboratory Results
09/14/23
06:03
Sodium 134 L
Potassium 4.5
Chloride 103
Carbon Dioxide 26
BUN 35 H
Creatinine 1.2
Glucose 99
Calcium 9.5
Vital Signs:
max temp for 24 hours
09/13/23
19:55
Temp 97.8 F
Vital Signs
Temp Pulse Resp BP Pulse Ox
97.5 F 78 18 101/80 97
09/14/23 07:38 09/14/23 08:51 09/14/23 07:38 09/14/23 08:51 09/14/23 07:38
I&O
09/13/23 09/14/23 09/15/23
06:59 06:59 06:59
Intake Total 1204 / 1204 480 / 480 240 / 240
Output Total 1275 / 1275 400 / 400
Balance -71 / -71 80 / 80 240 / 240
Review of Systems
-
All other systems: Reviewed and negative
Physical Exam
-
General: Well Developed, Well Nourished and No Apparent Distress
HEENT: Normocephalic and Atraumatic
Respiratory: Clear to Auscultation; Negative Wheezes or Rhonchi
Cardiac: Regular Rhythm, S1/S2 and Murmur
GI: Soft, Nontender, Nondistended and Normal Bowel Sounds
Musculoskeletal: No Clubbing, No Cyanosis and No Edema
Neuro: Awake
[2023-09-14 11:07] VITALS: BP 103/83
[2023-09-14] MEDS: PREVNAR 20 0.5 ML IM (14:41)
--- NOTE | 2023-09-14 15:15 | PTCARENOTE ---
Pt cleared for discharge. VSS. Remained in [facility]R. went for ECHO today. Discharged with all belongings and instructions.
--- NOTE | 2023-09-14 16:26 | W.DCSUMMARY ---
Discharge Summary
Discharge Data
Date of Admission: 09/05/23
Date of Discharge: 09/14/23
-
Pending Results: No
Hospital Course
Primary care physician : in [place]--not listed
Principal Discharge diagnosis : Acute systolic congestive heart failure exacerbation with hypotension and cardiogenic shock requiring milrinone and Levophed, acute hypoxemic respiratory insufficiency, new atrial flutter
Chronic Discharge diagnosis : Nonsustained ventricular tachycardia, hypotension, anxiety, transaminitis
Hospital Course : Patient was a 63-year-old male who had a myocardial infarction in 2019 and had an ejection fraction of 20% since that time. He was also status post defibrillator and pacemaker who presented with recurrent admissions for congestive
heart failure exacerbation. He had 3 days of worsening dyspnea on exertion and shortness of breath. Patient reported that he was discharged from the hospital approximately 1 month prior to admission. He was discharged on 40 mg of Lasix daily
which she states he has been compliant with. 4 to 5 days prior to admission he had increasing fatigue and shortness of breath on exertion. Cough was nonproductive. He denied any fevers chills or ill contacts. Workup in the emergency department
found him to be afebrile with normal blood pressure, heart rate was elevated at 149 with oxygen saturation of 90% on room air. EKG showed atrial flutter with 221 conduction and a rate of 150 bpm. BNP was elevated and patient was admitted.
Problem #1: Acute systolic congestive heart failure exacerbation with hypotension and cardiogenic shock. Patient required milrinone and Levophed therapy. Patient was seen in consultation by both cardiology and pulmonary. Patient underwent cardiac
catheterization and he was found to have a low cardiac output and index. Patient was started on milrinone and Levophed therapy for pressor support. Levophed was eventually weaned off and the patient was continued on milrinone. Patient was
diuresed with IV Lasix. Echocardiogram done on September 05 showed severely reduced left ventricular function with an ejection fraction of 15 to 20% and a hypokinetic right ventricle. Cardiology started him on low-dose MANJU inhibitor with up titration
as needed and he was eventually weaned off both the oxygen and the milrinone. Repeat echocardiogram prior to discharge on 09/14/2023 showed left ventricular ejection fraction of 20% with severely enlarged right ventricular size and hypokinetic right
ventricle. Biatrial enlargement as well. Patient was started on amiodarone and continued on spironolactone, Farxiga, metoprolol succinate, furosemide, and lisinopril. He was continued on Eliquis as well. He has been cleared for discharge from a
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
Problem #2: Acute hypoxemic respiratory insufficiency/failure. At one point, patient was on 10 L of oxygen which was eventually weaned to off with aggressive diuresis. Patient is no longer requiring oxygen at discharge.
Problem #3: New onset atrial flutter. Patient converted to sinus rhythm in the electric range preparer hours of September 08. Eliquis, amiodarone and beta-blockers were continued.
Problem #4: All other medical issues. These include Nonsustained ventricular tachycardia, hypotension, anxiety, transaminitis. These medical issues were stable and followed during his hospitalization. ICD and pacer were interrogated and confirmed
episodes of nonsustained ventricular tachycardia.
Patient is stable for discharge back to [place] at this time. He has been instructed to follow-up with a primary care physician as well as his gelatin maker utility. If there are any questions regarding this dictation or his hospital stay, please not
hesitate to call. Our office number is [phone].
Time for discharge 38 minutes.
Important imaging findings :
09/06/23 ECHO CONCLUSIONS:
Limited echo images
Severely reduced left ventricular systolic function.
Left ventricular ejection fraction is 15-20% .
hypokinetic right ventricle
Limited valve assessment . Can not exclude aortic stenosis.
09/14/23 ECHO CONCLUSIONS:
Left ventricle is severely dilated with severely reduced left ventricular
systolic function.
Left ventricular ejection fraction is 20%.
Severely enlarged right ventricular size.
RV is hypokinetic.
Biatrial enlargement.
Mild aortic stenosis. The degree of may be underestimated due to reduce LV
function.
No significant charge from prior study dated 09/06/2023.
Consider dobutamine echo to further assess the aortic valve if clinically
indicated.
Procedure findings :
CARDIAC CATHETERIZATION IMPRESSION:
CONCLUSIONS:
1. Elevated left heart filling pressures with moderate pulmonary hypertension
2. Low cardiac output/index--cardiac output 3.1 and cardiac index 1.5
3. Left ventricular enlargement with severe global hypokinesis with visually estimated EF 15%
4. Normal coronary arteries
Discharge Plan
-
Patient Disposition: Home (Routine Discharge)
Discharge Diagnosis/Procedures: Acute systolic congestive heart failure exacerbation with cardiogenic shock, acute hypoxemic respiratory insufficiency, new onset atrial flutter, nonsustained ventricular tachycardia, hypotension, anxiety,
transaminitis
Condition: Fair
Diet: Low Cholesterol, 2 Gram Sodium and Restrict fluids to 48 oz
Activity: As tolerated
Driving Restrictions: As prior to admission
Bathing Restrictions: None
Activity Restrictions/Additional Instructions:
You will need to follow-up with your primary gelatin maker utility Dr. Conrado Escalante within 1 to 2 weeks
Instructions: *PCP/Other [facility] Heart Failure Instructions
Referrals:
NONE,* [Active] - in less than 1 week (You will need to find a primary care physician)
Prescriptions:
New
amiodarone [Pacerone] 200 mg Tablet
200 mg PO BID Qty: 60 0RF
Rx Instructions:
Take twice daily for 3 weeks then reduce to 200 mg daily
acetaminophen 325 mg Tablet
650 mg PO Q4HPRN PRN (Reason: temp>100.4 and mild pain) Qty: 0 0RF
furosemide 80 mg Tablet
80 mg PO DAILY Qty: 30 0RF
dapagliflozin propanediol 10 mg Tablet
10 mg PO DAILY Qty: 30 0RF
melatonin 3 mg Tablet
3 mg PO HSPRN PRN (Reason: insomnia) Qty: 0 0RF
metoprolol succinate 25 mg Tablet Extended Release 24 Hr
12.5 mg PO DAILY Qty: 30 0RF
lisinopril 2.5 mg Tablet
1.25 mg PO DAILY Qty: 30 0RF
Continued
potassium chloride 10 mEq Tablet Extended Release
10 meq PO DAILY
Eliquis 5 mg Tablet
5 mg PO BID
spironolactone 25 mg Tablet
25 mg PO DAILY
Discontinued
furosemide 40 mg Tablet
40 mg PO DAILY
carvedilol 12.5 mg Tablet
12.5 mg PO BID
lisinopril 5 mg Tablet
5 mg PO DAILY
Discharge Orders:
Discharge Patient (As Directed); Ordered 09/14/23
Ordered By: Monica Menezes
Care Plan Goals
Care Plan Goals:
Problem: Readiness for enhanced knowledge related to diagnosis and treatment plan
Goal: Understand your diagnosis and treatment plan needs, including medications if applicable.
Instructions: Know your diagnosis, underlying causes and treatment plan options, including medications if applicable. Consult with your health care team to learn about your diagnosis and treatment plan, including medications if applicable.
Discharge Date and Time
Discharge Date/Time: 09/14/23 15:53
Print Language: GHANAIAN
--- NOTE | 2023-09-15 08:56 | W.HF.CON ---
Heart Failure
- LV Function
Left ventricular function study result: LV Ejection fraction </= 35%
Ejection Fraction Percentage: 20
- ARNI
Patient already on ARNI: No
Heart Failure ARNI Contraindication: Hypotension
- ACEI/ARB
Patient already on ACEI/ARB: Yes
- Beta Judy
Patient already on Evidence Based Beta Judy: Yes
- Mineralocorticord Receptor Antagonist
Patient already on MRA: Yes
- SGLT-2 Inhibitor
Patient already on SGLT-2 Inhibitor: Yes
- Afib Anticoagulation
Patient already on Anticoagulation for Afib: Yes
- NYHA CHF Classification
NYHA CHF Classification Level: Class III - Symptoms w/ min exertion, interferes w/ nml daily activity
- ACC/AHA Stage
ACC/AHA Stage: Stage C: Symptomatic Heart Failure
== END 2023-09-14 15:53 | disposition home or self-care (01) | DRG 286 ==
LOC: IVU 23:58
PROVIDERS: Internal Medicine; Internal Medicine Cardiovascular Disease; Nurse Practitioner Family; Nurse Practitioner Gerontology; Physician Assistant; ADMITTING PHYSICIAN Internal Medicine; ATTENDING PHYSICIAN Internal Medicine; EMERGENCY PHYSICIAN Student in an Organized Health Care Education/Training Program; OTHER PHYSICIAN Internal Medicine; OTHER PHYSICIAN Internal Medicine Pulmonary Disease
PROC: B2161ZZ Fluoroscopy of Right and Left Heart using Low Osmolar Contrast (ICD-10-PCS; 2023-09-10)
PROC: B2111ZZ Fluoroscopy of Multiple Coronary Arteries using Low Osmolar Contrast (ICD-10-PCS; 2023-09-10)
PROC: 4A023N8 Measurement of Cardiac Sampling and Pressure, Bilateral, Percutaneous Approach (ICD-10-PCS; 2023-09-10)
DX: I11.0 Hypertensive heart disease with heart failure (principal); I50.23 Acute on chronic systolic (congestive) heart failure; R57.0 Cardiogenic shock; J96.91 Respiratory failure, unspecified with hypoxia; L03.113 Cellulitis of right upper limb; E87.1 Hypo-osmolality and hyponatremia; E87.3 Alkalosis; I48.92 Unspecified atrial flutter; I45.89 Other specified conduction disorders; I47.20 Ventricular tachycardia, unspecified; I48.0 Paroxysmal atrial fibrillation; I5A Non-ischemic myocardial injury (non-traumatic); F41.9 Anxiety disorder, unspecified; Z79.01 Long term (current) use of anticoagulants; I25.10 Atherosclerotic heart disease of native coronary artery without angina pectoris; I42.8 Other cardiomyopathies; K76.1 Chronic passive congestion of liver; I27.20 Pulmonary hypertension, unspecified; Z11.52 Encounter for screening for COVID-19
CPT/HCPCS: 93308; 71045; 71046; 71275; 80048; 80053; 80061; 82248; 82805; 82962; 83605; 83735; 83880; 84443; 84484; 85025; 85027; 85379; 85610; 85730; 87811; 90677; 93005; 93306; 93460; 93970; 94640; 96374; 96375; 96376; 97116; 97162; 97166; 99291; C1760; C1894; G0009; J2260; Q9967